=== PATIENT | female | born 1970 | race Caucasian/White ===

== ENCOUNTER → 2016-07-24 | Outpatient (CLI) | payer OTHER, BC ==
--- NOTE | 2016-07-25 08:57 | XR ---
Left foot HISTORY: Achilles tendinitis 3 views of the left foot No comparisons Bone mineralization, joint spaces and alignment are maintained. There is an enthesophyte at the inser tion of the Achilles tendon. Plantar spur is present. IMPRESSION: Correlate for Achilles tendinitis. MRI of the ankle may be of benefit.
== END | disposition home or self-care (01) ==
LOC: RADXRYALE 14:26
PROVIDERS: ATTEND Physician Assistant Medical
DX: M76.62 Achilles tendinitis, left leg (principal)

== ENCOUNTER → 2016-08-29 | Outpatient (CLI) | payer OTHER, BC ==
--- NOTE | 2016-08-29 22:09 | MR ---
EXAMINATION TYPE: MR ankle LT wo con DATE OF EXAM: 08/29/2016 7:29 PM COMPARISON: NONE HISTORY: Pain in left foot/ankle, swelling, limited movement x 1 month Standard multiplanar, multisequence MRI departmental protocol. [facility]. Multiplanar, multisequence images of the left ankle were acquired. Diffusion weighted imaging was per formed. FINDINGS: Peroneus longus and brevis tendons appear intact. Posterior tibial and flexor hallucis lo ngus tendons are intact. Very minimal fluid adjacent to these tendons is not excluded. Achilles tendon is intact. No expansion is evident. No internal signal abnormality is evident. There is soft tissue swelling within the superficial soft tissues surrounding the ankle; including po steriorly, laterally, and medially. This extends to the dorsum of the proximal foot. Significant underlying joint effusion is not present. Signal within the osseous structures is normal. There is some increased signal within the soft tissues inferior to the proximal foot tarsal region c ompatible with edema. This may be adjacent to the spring ligament which appears intact and of normal signal. Medial and lateral talotibial and talofibular ligaments appear intact. Intraosseous space within the twoar-tv-dvfe appears normal. Osseous signal is normal. No suspicious fluid or erosions are evident. IMPRESSION: 1. Diffuse nonspecific superficial soft tissue edema. 2. Some edema may also be within the soft tissues inferior to the tarsal bone region. 3. Minimal tendinosis of the posterior tibial and flexor hallucis longus tendons at the level of the malleolus is not excluded.
== END | disposition home or self-care (01) ==
LOC: RADMRIMAIN 18:37
PROVIDERS: ATTEND Orthopaedic Surgery Sports Medicine
DX: S96.992A Other specified injury of unspecified muscle and tendon at ankle and foot level, left foot, initial encounter (principal); M67.874 Other specified disorders of tendon, left ankle and foot

== ENCOUNTER → 2016-09-05 | Outpatient (CLI) | payer OTHER, BC ==
[2016-09-05 09:14] LABS: CH 29.7; CHCM 32.3; HCT 41.5 % (34.0-46.0); HDW 2.37; HGB 13.2 gm/dL (11.4-16.0); MCH 29.3 pg (25.0-35.0); MCHC 31.8 g/dL (31.0-37.0); RBC 4.51 m/uL (3.80-5.40); RDW 12.5 % (11.5-15.5); WBC 6.1 k/uL (3.8-10.6); WBC (Perox) 6.64
[2016-09-05 09:15] LABS: Basophils % (A) 0 %; Eosinophils # (A) 0.1 k/uL (0-0.7); Eosinophils % (A) 1 %; Luc # (Auto) 0.13; Luc % (Auto) 2; Lymphocytes % (A) 33 %; Monocytes # (A) 0.3 k/uL (0-1.0); Monocytes % (A) 5 %; Neutrophils # (A) 3.5 k/uL (1.3-7.7); Neutrophils % (A) 58 %
[2016-09-05 09:34] LABS: ALT 21 U/L (9-52); AST 17 U/L (14-36); Alkaline Phosphatase 91 U/L (38-126); Anion Gap 11 mmol/L; Blood Urea Nitrogen 14 mg/dL (7-17); Calcium 9.5 mg/dL (8.4-10.2); Carbon Dioxide 27 mmol/L (22-30); Chloride 104 mmol/L (98-107); Cholesterol 179 mg/dL (<200); Glucose 84 mg/dL (74-99); HDL Cholesterol 58 mg/dL (40-60); Non-African American GFR(MDRD) >60 (>60 ml/min/1.73 sqM); Potassium 4.6 mmol/L (3.5-5.1); Sodium 142 mmol/L (137-145); Total Bilirubin 0.5 mg/dL (0.2-1.3); Total Protein 6.8 g/dL (6.3-8.2); Triglycerides 79 mg/dL (<150)
== END | disposition home or self-care (01) ==
LOC: LABWHC1 08:38
PROVIDERS: ATTEND Family Medicine
DX: E55.9 Vitamin D deficiency, unspecified (principal); E03.9 Hypothyroidism, unspecified; D64.9 Anemia, unspecified
CPT/HCPCS: 36415; 80053; 80061; 82306; 84439; 84443; 84481; 85025

== ENCOUNTER → 2017-02-27 | Outpatient (CLI) | payer OTHER ==
--- NOTE | 2017-02-27 16:13 | XR ---
EXAMINATION TYPE: XR chest 2V DATE OF EXAM: 02/27/2017 COMPARISON: NONE TECHNIQUE: PA and lateral views submitted. HISTORY: Granuloma FINDINGS: The lungs are clear and there is no pneumothorax, pleural effusion, or focal pneumonia. Calcified g ranulomas are seen in the upper lobe. Biapical pleural thickening noted IMPRESSION: 1. No acute process. Changes of chronic granulomatous disease.
--- NOTE | 2017-02-27 16:57 | US ---
EXAMINATION TYPE: US thyroid st tissue head/neck DATE OF EXAM: 02/27/2017 COMPARISON: NONE CLINICAL HISTORY: E03.9 Hypothyroidism unspecified type. GLAND SIZE: Right Lobe: 4.1 x 0.8 x 0.9 cm Overall Parenchyma: homogenous Left Lobe: 4.4 x 1.2 x 1.1 cm Overall Parenchyma: slightly heterogeneous Isthmus Thickness: 0.1 cm NODULES RIGHT: # of nodules measured on right: 0 LEFT: # of nodules measured on left: 0 ISTHMUS: # of nodules measured in the isthmus: 0 Bilateral neck scanned, no evidence of lymphadenopathy. IMPRESSION: Negative thyroid sonogram. No discrete mass.
== END ==
LOC: RADUSWWP 15:55
PROVIDERS: ATTEND Family Medicine
DX: E03.9 Hypothyroidism, unspecified (principal); J84.10 Pulmonary fibrosis, unspecified
CPT/HCPCS: 71020; 76536

== ENCOUNTER → 2017-11-29 | Outpatient (CLI) | payer OTHER ==
--- NOTE | 2017-11-29 14:54 | XR ---
Third digit left hand HISTORY: Trauma and pain 2 views of the third digit of the left hand Bone mineralization, joint spaces and alignment are maintained IMPRESSION: No fracture or dislocation is evident, follow-up as indicated.
== END | disposition home or self-care (01) ==
LOC: RADXRYALE 11:34
PROVIDERS: ATTEND Physician Assistant Medical
DX: S67.193A Crushing injury of left middle finger, initial encounter (principal)

== ENCOUNTER → 2018-03-21 | Outpatient (CLI) | payer OTHER ==
[2018-03-21 08:36] LABS: T4, Free (Free Thyroxine) 1.13 ng/dL (0.78-2.19)
[2018-03-21 17:13] LABS: Thyroid Peroxidase Antibodies 31.8 U/mL (0.0-60.0)
== END | disposition home or self-care (01) ==
LOC: LABWHC1 07:29
PROVIDERS: ATTEND Family Medicine
DX: E03.9 Hypothyroidism, unspecified (principal); R53.83 Other fatigue
CPT/HCPCS: 36415; 84439; 84443; 86376; 86800

== ENCOUNTER → 2018-03-25 | Outpatient (CLI) | payer OTHER ==
--- NOTE | 2018-03-25 18:12 | US ---
EXAMINATION TYPE: US venous doppler duplex LE LT DATE OF EXAM: 03/25/2018 5:49 PM COMPARISON: NONE CLINICAL HISTORY: M25.572 Pain in left ankle and joints of left foot. Left achilles tendon surgery 6 weeks ago, pain and swelling left leg SIDE PERFORMED: Left TECHNIQUE: The lower extremity deep venous system is examined utilizing real time linear array sonog randolph with graded compression, doppler sonography and color-flow sonography. VESSELS IMAGED: External Iliac Vein (EIV) Common Femoral Vein Deep Femoral Vein Greater Saphenous Vein * Femoral Vein Popliteal Vein Small Saphenous Vein * Proximal Calf Veins (* superficial vessels) Left Leg: Negative for DVT. At the area of the patient's scar, there is a hypoechoic area visualized measuring 2.3 x 0.5 x 1.5 cm IMPRESSION: No evidence of deep venous thrombosis. There is an elongated hypoechoic area at the area of incision that measures 23 x 5 mm and could be hematoma or seroma.
== END | disposition home or self-care (01) ==
LOC: RADUSMAIN 17:30
PROVIDERS: ATTEND Orthopaedic Surgery
DX: M25.572 Pain in left ankle and joints of left foot (principal); R60.9 Edema, unspecified; I80.9 Phlebitis and thrombophlebitis of unspecified site

== ENCOUNTER → 2018-03-27 | Outpatient (CLI) | payer OTHER ==
--- NOTE | 2018-03-27 23:42 | US ---
EXAMINATION TYPE: US thyroid st tissue head/neck DATE OF EXAM: 03/27/2018 COMPARISON: 02/27/2017 CLINICAL HISTORY: 47-year-old female E03.9 HYPOTHYROIDISM, [id number] FATIGUE. TECHNIQUE: Multiple sonographic images of the thyroid gland are obtained. FINDINGS: GLAND SIZE: Right Lobe: 4.7 x 1.3 x 1.0 cm Overall Parenchyma: homogenous Left Lobe: 4.9 x 1.2 x 1.2 cm Overall Parenchyma: homogeneous Isthmus Thickness: 0.2 cm NODULES RIGHT: # of nodules measured on right: 1 1. 0.9 X 0.6 x 0.7 cm hypoechoic solid nodule at the mid pole with well-defined margins; . This no dule is wider than tall and shows no intranodular vascularity. Prior size: no prior LEFT: # of nodules measured on left: 0 ISTHMUS: # of nodules measured in the isthmus: 0 Bilateral neck scanned, no evidence of lymphadenopathy. IMPRESSION: A vague 9 mm solid nodule in the right lobe not seen on 02/27/2017. Close follow-up recommended. Biops y if progressive growth bringing it to over 1 cm.
== END | disposition home or self-care (01) ==
LOC: RADUSWWP 15:51
PROVIDERS: ATTEND Family Medicine
DX: E03.9 Hypothyroidism, unspecified (principal); R53.83 Other fatigue
CPT/HCPCS: 76536

== ENCOUNTER → 2019-01-29 | Outpatient (CLI) | payer OTHER ==
--- NOTE | 2019-01-30 15:20 | MM ---
Reason for exam: screening (asymptomatic). Last mammogram was performed 3 years and 4 months ago. History: Patient is postmenopausal. Family history of breast cancer in mother at age 60 and breast cancer in maternal aunt. Benign excisional biopsy of the right breast, December 08, 1997. Physical Findings: A clinical breast exam by your physician is recommended on an annual basis and results should be correlated with mammographic findings. MG 3D Screening Mammo W/Cad Bilateral CC and MLO view(s) were taken. Prior study comparison: September 23, 2015, bilateral MG 3d screening mammo w/cad. August 14, 2014, bilateral MG screening mammo w CAD. The breast tissue is heterogeneously dense. This may lower the sensitivity of mammography. Benign appearing bilateral calcifications. No significant changes when compared with prior studies. ASSESSMENT: Benign, BI-RAD 2 RECOMMENDATION: Routine screening mammogram of both breasts in 1 year.
== END | disposition home or self-care (01) ==
LOC: RADMAMWWP 07:21
PROVIDERS: ATTEND Family Medicine
DX: Z12.31 Encounter for screening mammogram for malignant neoplasm of breast (principal)
CPT/HCPCS: 77063; 77067

== ENCOUNTER → 2019-07-25 | Outpatient (CLI) | payer OTHER ==
--- NOTE | 2019-07-26 03:56 | MR ---
EXAMINATION TYPE: MR brain wo/w con DATE OF EXAM: 07/25/2019 COMPARISON: 01/24/2016 HISTORY: dizziness, headache CONTRAST: Standard multiplanar, multisequence MRI departmental protocol utilizing 7.5 mL intravenous Gadavist g adolinium contrast. Ventricles and sulci appear normal. There is no mass effect nor midline shift. There is no sign of in tracranial hemorrhage. There is no evidence of cerebral edema. Brainstem is intact. Corpus callosum a ppears normal. Sella turcica appears normal. There is mild mucosal thickening right maxillary sinus. Contrast images show no pathologic enhancement. There is normal opacification of the venous sinuses. There is arterial flow in the anterior middle and posterior cerebral arteries. There are a few small variable sized rounded areas of fluid signal in the medial aspect right frontal lobe convexity involving the fritz-white matter junction. Fluid signal and does not show enhancement. IMPRESSION: Nonenhancing fluid signal discrete foci in the medial right frontal lobe could relate to dilated kvng vascular spaces unchanged compared to old exam. Clinical significance is not clear. There is no evide nce of any significant frontal lobe atrophy. There is some right maxillary sinusitis that appears worse than old exam.
== END | disposition home or self-care (01) ==
LOC: RADMRIMAIN 20:21
PROVIDERS: ATTEND Family Medicine
DX: R90.89 Other abnormal findings on diagnostic imaging of central nervous system (principal); R55 Syncope and collapse; G43.009 Migraine without aura, not intractable, without status migrainosus; F43.12 Post-traumatic stress disorder, chronic; G89.29 Other chronic pain
CPT/HCPCS: 70553; A9585

== ENCOUNTER → 2020-04-06 | Outpatient (CLI) | payer OTHER | END | disposition home or self-care (01) | LOC: LABWHC1 09:59 | PROVIDERS: ATTEND Family Medicine | DX: R05 Cough (principal) | CPT/HCPCS: U0003; C9803 ==

== ENCOUNTER 2020-04-10 16:35 | Emergency (ER) | payer OTHER ==
--- NOTE | 2020-04-10 17:15 | ED ---
General Adult HPI - General Chief complaint: Shortness of Breath Stated complaint: KRISHAN SOUZA SOB DAWNA Time Seen by Provider: 04/10/20 16:56 Source: patient Mode of arrival: wheelchair Limitations: no limitations - History of Present Illness Initial comments: Patient presents the ED stating that she tested positive for Covid 4 days ago, and she states that she has had chest tightness and dyspnea since this morning. Patient states that she has had symptoms of cough, congestion, decreased sense of smell/taste and headache for the past 7 days or so. Patient states that she does feel anxious, and she has been "hyperventilating". Patient denies fever, head injury, focal numbness/weakness/neuro deficit, neck pain or stiffness, neck/arm/jaw/back pain, pleuritic pain, leg or calf swelling or pain, hemoptysis, palpitations, dizziness, diaphoresis, nausea/vomiting/diarrhea, abdominal pain, decreased urine output, urinary symptoms, or any other symptoms or complaints. - Related Data Allergies Allergy/AdvReac Type Severity Reaction Status Date / Time shellfish derived [Shrimp] Allergy Vomiting Verified 04/10/20 18:28 Review of Systems ROS Statement: Those systems with pertinent positive or pertinent negative responses have been documented in the HPI. ROS Other: All systems not noted in ROS Statement are negative. Past Medical History Past Medical History: No Reported History Past Surgical History: Appendectomy, Cholecystectomy Smoking Status: Never smoker Past Alcohol Use History: None Reported Past Drug Use History: None Reported General Exam Limitations: no limitations General appearance: alert, in no apparent distress Head exam: Present: atraumatic, normocephalic Eye exam: Present: normal appearance, EOMI ENT exam: Present: mucous membranes moist Neck exam: Present: other (Trachea is in midline). Absent: tenderness, meningismus Respiratory exam: Present: normal lung sounds bilaterally. Absent: respiratory distress, wheezes, rales, rhonchi, stridor, chest wall tenderness Cardiovascular Exam: Present: regular rate, normal rhythm, normal heart sounds, other (Normal radial pulses bilaterally) GI/Abdominal exam: Present: soft. Absent: distended, tenderness, guarding Extremities exam: Present: other (Negative Homans sign bilaterally). Absent: tenderness, pedal edema, calf tenderness Neurological exam: Present: alert, oriented X3. Absent: motor sensory deficit Psychiatric exam: Present: anxious Skin exam: Present: warm, dry, intact, normal color Course Vital Signs 04/10/20 04/10/20 16:37 17:46 Temperature 98.7 F Pulse Rate 81 Respiratory 22 20 Rate Blood Pressure 154/80 O2 Sat by Pulse 100 Oximetry - Reevaluation(s) Reevaluation #1: 04/10/20 19:42 Patient was given IV fluids in the ED, and she states that she is feeling somewhat better now. Patient denies development of any new symptoms while in the ED. Patient remains alert and breathing comfortably with clear breath sounds bilaterally and a normal room air oxygen saturation. Patient is aware of her test results, and she feels comfortable going home at this time. Patient was counseled about Covid and she was given quarantine instructions. Patient was clearly explained return and follow-up instructions. Patient feels comfortable with this plan. EKG Findings - EKG Comments: EKG Findings:: Sinus bradycardia, ventricular rate of 59 bpm, no ectopy, normal OH and QRS intervals, normal QT interval, normal axis, no ST or T-wave abnormality Medical Decision Making - Medical Decision Making Patient is breathing comfortably in the ED with a normal room air oxygen saturation. Patient's chest x-ray is unremarkable. Patient's labs are fairly unremarkable, other than a mildly elevated lactate level. Patient was given IV fluids in the ED. Will discharge patient home at this time with Covid instructions. - Lab Data Result diagrams: 04/10/20 17:35 04/10/20 17:35 Lab Results 04/10/20 04/10/20 04/10/20 Range/Units 17:35 17:35 17:35 WBC 4.0 (3.8-10.6) k/uL RBC 4.30 (3.80-5.40) m/uL Hgb 13.1 (11.4-16.0) gm/dL Hct 39.0 (34.0-46.0) % MCV 90.8 (80.0-100.0) fL MCH 30.6 (25.0-35.0) pg MCHC 33.6 (31.0-37.0) g/dL RDW 12.1 (11.5-15.5) % Plt Count 212 (150-450) k/uL Neutrophils % 43 % Lymphocytes % 43 % Monocytes % 8 % Eosinophils % 1 % Basophils % 2 % Neutrophils # 1.7 (1.3-7.7) k/uL Lymphocytes # 1.7 (1.0-4.8) k/uL Monocytes # 0.3 (0-1.0) k/uL Eosinophils # 0.1 (0-0.7) k/uL Basophils # 0.1 (0-0.2) k/uL PT 9.9 (9.0-12.0) sec INR 1.0 (<1.2) APTT 25.5 (22.0-30.0) sec D-Dimer 0.18 (<0.60) mg/L FEU Sodium 141 (137-145) mmol/L Potassium 3.6 (3.5-5.1) mmol/L Chloride 110 H (98-107) mmol/L Carbon Dioxide 23 (22-30) mmol/L Anion Gap 8 mmol/L BUN 13 (7-17) mg/dL Creatinine 0.66 (0.52-1.04) mg/dL Est GFR (CKD-EPI)AfAm >90 (>60 ml/min/1.73 sqM) Est GFR (CKD-EPI)NonAf >90 (>60 ml/min/1.73 sqM) Glucose 129 H (74-99) mg/dL Plasma Lactic Acid Jasper (0.7-2.0) mmol/L Calcium 9.4 (8.4-10.2) mg/dL Total Bilirubin 0.3 (0.2-1.3) mg/dL AST 29 (14-36) U/L ALT 29 (4-34) U/L Alkaline Phosphatase 73 (38-126) U/L Troponin I (0.000-0.034) ng/mL NT-Pro-B Natriuret Pep pg/mL Total Protein 6.2 L (6.3-8.2) g/dL Albumin 3.7 (3.5-5.0) g/dL 04/10/20 04/10/20 04/10/20 Range/Units 17:35 17:35 17:35 WBC (3.8-10.6) k/uL RBC (3.80-5.40) m/uL Hgb (11.4-16.0) gm/dL Hct (34.0-46.0) % MCV (80.0-100.0) fL MCH (25.0-35.0) pg MCHC (31.0-37.0) g/dL RDW (11.5-15.5) % Plt Count (150-450) k/uL Neutrophils % % Lymphocytes % % Monocytes % % Eosinophils % % Basophils % % Neutrophils # (1.3-7.7) k/uL Lymphocytes # (1.0-4.8) k/uL Monocytes # (0-1.0) k/uL Eosinophils # (0-0.7) k/uL Basophils # (0-0.2) k/uL PT (9.0-12.0) sec INR (<1.2) APTT (22.0-30.0) sec D-Dimer (<0.60) mg/L FEU Sodium (137-145) mmol/L Potassium (3.5-5.1) mmol/L Chloride (98-107) mmol/L Carbon Dioxide (22-30) mmol/L Anion Gap mmol/L BUN (7-17) mg/dL Creatinine (0.52-1.04) mg/dL Est GFR (CKD-EPI)AfAm (>60 ml/min/1.73 sqM) Est GFR (CKD-EPI)NonAf (>60 ml/min/1.73 sqM) Glucose (74-99) mg/dL Plasma Lactic Acid Jasper 2.2 H* (0.7-2.0) mmol/L Calcium (8.4-10.2) mg/dL Total Bilirubin (0.2-1.3) mg/dL AST (14-36) U/L ALT (4-34) U/L Alkaline Phosphatase (38-126) U/L Troponin I <0.012 (0.000-0.034) ng/mL NT-Pro-B Natriuret Pep 41 pg/mL Total Protein (6.3-8.2) g/dL Albumin (3.5-5.0) g/dL - Radiology Data Radiology results: image reviewed (Chest x-ray is negative) Disposition Clinical Impression: COVID-19 Disposition: HOME SELF-CARE Condition: Stable Instructions (If sedation given, give patient instructions): Upper Respiratory Infection (ED) Additional Instructions: Return to the ER immediately should you develop new or worsening pain, increased shortness of breath/trouble breathing, vomiting, feeling dizzy or faint, or new or worsening symptoms. Follow up closely with your primary care provider. Is patient prescribed a controlled substance at d/c from ED?: No Referrals: Ant Ly DO [Primary Care Provider] - 1-2 days Time of Disposition: 19:45
--- NOTE | 2020-04-10 17:43 | XR ---
EXAMINATION TYPE: XR chest 1V portable DATE OF EXAM: 04/10/2020 COMPARISON: 02/27/2017 HISTORY: Short of breath TECHNIQUE: FINDINGS: Heart and mediastinum are normal. Lungs are clear. Diaphragm is normal. Bony thorax is inta ct. IMPRESSION: No active cardiopulmonary disease. No change.
[2020-04-10 17:47] LABS: Basophils # (A) 0.1 k/uL (0-0.2); Basophils % (A) 2 %; Eosinophils # (A) 0.1 k/uL (0-0.7); Eosinophils % (A) 1 %; HGB 13.1 gm/dL (11.4-16.0); Lymphocytes # (A) 1.7 k/uL (1.0-4.8); Lymphocytes % (A) 43 %; MCH 30.6 pg (25.0-35.0); MCHC 33.6 g/dL (31.0-37.0); MCV 90.8 fL (80.0-100.0); Mean Platelet Volume 7.4; Monocytes # (A) 0.3 k/uL (0-1.0); Monocytes % (A) 8 %; Neutrophils # (A) 1.7 k/uL (1.3-7.7); Neutrophils % (A) 43 %; Platelet Count 212 k/uL (150-450); RDW 12.1 % (11.5-15.5)
[2020-04-10 18:09] LABS: ALT 29 U/L (4-34); AST 29 U/L (14-36); African American GFR (CKD) >90 (>60 ml/min/1.73 sqM); Albumin 3.7 g/dL (3.5-5.0); Alkaline Phosphatase 73 U/L (38-126); Anion Gap 8 mmol/L; Blood Urea Nitrogen 13 mg/dL (7-17); Calcium 9.4 mg/dL (8.4-10.2); Carbon Dioxide 23 mmol/L (22-30); Chloride 110 mmol/L (98-107); Glucose 129 mg/dL (74-99); Non-African American GFR(CKD) >90 (>60 ml/min/1.73 sqM); Potassium 3.6 mmol/L (3.5-5.1); Sodium 141 mmol/L (137-145); Total Bilirubin 0.3 mg/dL (0.2-1.3); Total Protein 6.2 g/dL (6.3-8.2)
[2020-04-10 18:14] LABS: D-Dimer 0.18 mg/L FEU (<0.60); Partial Thromboplastin Time 25.5 sec (22.0-30.0); Prothrombin Time 9.9 sec (9.0-12.0)
[2020-04-10] MEDS ORDERED: SODIUM CHLORIDE 0.9% 1,000 ML IV ONE (18:15)
[2020-04-10 20:30] VITALS: BP 147/83; PULSE 53; RESP 18; TEMP 97.8
== END 2020-04-10 20:35 | disposition home or self-care (01) ==
LOC: EC 16:35
DX: U07.1 COVID-19 (principal); Z91.013 Allergy to seafood; Z90.49 Acquired absence of other specified parts of digestive tract
CPT/HCPCS: 36415; 71045; 80053; 83605; 83880; 84484; 85025; 85379; 85610; 85730; 93005; 96360; 99285

== ENCOUNTER → 2020-04-26 | Outpatient (CLI) | payer OTHER ==
[2020-04-26 09:55] LABS: Basophils # (A) 0.1 k/uL (0-0.2); Basophils % (A) 1 %; Eosinophils # (A) 0.1 k/uL (0-0.7); Eosinophils % (A) 2 %; HGB 12.7 gm/dL (11.4-16.0); Lymphocytes % (A) 28 %; MCHC 31.8 g/dL (31.0-37.0); MCV 94.4 fL (80.0-100.0); Mean Platelet Volume 7.2; Monocytes # (A) 0.4 k/uL (0-1.0); Monocytes % (A) 6 %; Neutrophils # (A) 4.5 k/uL (1.3-7.7); Neutrophils % (A) 62 %; Platelet Count 278 k/uL (150-450); RBC 4.24 m/uL (3.80-5.40); RDW 12.5 % (11.5-15.5); WBC 7.2 k/uL (3.8-10.6)
[2020-04-26 17:54] LABS: African American GFR (CKD) 99.6 (60.0-200.0); Albumin 4.1 g/dL (3.80-4.90); Albumin/Globulin Ratio 1.86 (1.60-3.17); Anion Gap 7.7 mmol/L (4.00-12.00); BUN/Creat Ratio 13.75 Ratio (12.00-20.00); Calcium 9.2 mg/dL (8.7-10.3); Carbon Dioxide 27.3 mmol/L (21.6-31.8); Globulin 2.2 g/dL (1.6-3.3); Potassium 4.5 mmol/L (3.5-5.5); Total Bilirubin 0.3 mg/dL (0.2-1.2); Total Protein 6.3 g/dL (6.2-8.2)
[2020-04-26 18:02] LABS: T4, Free (Free Thyroxine) 1.3 ng/dL (0.80-1.80)
[2020-04-27 12:23] LABS: Chol/HDL Ratio 3.86; LDL Cholesterol,Calculated 126.4 mg/dL (0.0-131.0); VLDL Calculation 13.6 mg/dL (5.00-40.00)
== END | disposition home or self-care (01) ==
LOC: LABWHC1 09:34
PROVIDERS: ATTEND Family Medicine
DX: E03.9 Hypothyroidism, unspecified (principal); E55.9 Vitamin D deficiency, unspecified; E66.9 Obesity, unspecified; M79.7 Fibromyalgia
CPT/HCPCS: 36415; 80053; 80061; 82306; 84439; 84443; 85025

== ENCOUNTER → 2020-07-28 | Outpatient (CLI) | payer OTHER ==
--- NOTE | 2020-07-28 15:34 | US ---
EXAMINATION TYPE: US thyroid st tissue head/neck DATE OF EXAM: 07/28/2020 COMPARISON: US CLINICAL HISTORY: E03.9 Hypothyroidism, R13.13 Dysphagia. GLAND SIZE: Right Lobe: 4.3 x 1.1 x 1.4 cm Overall Parenchyma: homogenous Left Lobe: 3.3 x 1.4 x 1.3 cm Overall Parenchyma: homogeneous Isthmus Thickness: 0.2 cm NODULES RIGHT: # of nodules measured on right: 1 1. 1.2 X 0.7 x 0.5 cm solid, hypoechoic nodule in mid pole, which is wider than tall, with ill-defi criss margins, without echogenic foci. Prior size: 0.9 x 0.7 x 0.6 cm LEFT: # of nodules measured on left: 0 ISTHMUS: # of nodules measured in the isthmus: 0 Bilateral neck scanned: superolateral to right thyroid are 2 lymph nodes with larger inferior node = 0.9 x 0.5 x 0.4cm . IMPRESSION: TR 4, moderately suspicious, follow-up recommended 2017 ACR TI-RADS LEVEL: 4 *Highest TI-RADS level nodule reported
== END | disposition home or self-care (01) ==
LOC: RADUSWWP 07:35
PROVIDERS: ATTEND Family Medicine
DX: E04.1 Nontoxic single thyroid nodule (principal); E03.9 Hypothyroidism, unspecified
CPT/HCPCS: 76536

== ENCOUNTER 2020-09-06 12:30 | Day surgery (SDC) | payer OTHER ==
[2020-09-06 13:33] VITALS: RESP 16; TEMP 98
[2020-09-06 14:47] VITALS: BP 118/68; PULSE 64
--- NOTE | 2020-09-06 14:48 | US ---
ULTRASOUND GUIDED FNA THYROID BIOPSY: CLINICAL HISTORY: 1.5 cm right thyroid nodule FINDINGS: Preliminary imaging demonstrated no evidence of a 1.5 cm thyroid nodule. Largest nodule on the right measured approximately 7 mm. Case was discussed with the patient who wished to defer the biopsy. IMPRESSION: 1. Deferred FNA right thyroid. 1.5 cm previous nodule now measures approximately 0.7 cm in greatest a xis and is noticeably reduced in size. Recommend 6 month follow-up ultrasound.
== END 2020-09-06 14:47 | disposition home or self-care (01) ==
LOC: RADPROMAIN 12:30
PROVIDERS: ATTEND Physician Assistant Medical
DX: E04.1 Nontoxic single thyroid nodule (principal); Z53.9 Procedure and treatment not carried out, unspecified reason
CPT/HCPCS: 76536

== ENCOUNTER → 2020-10-05 | Outpatient (CLI) | payer OTHER ==
--- NOTE | 2020-10-05 12:22 | XR ---
EXAMINATION TYPE: XR shoulder complete RT DATE OF EXAM: 10/05/2020 COMPARISON: NONE HISTORY: Pain TECHNIQUE: Three views are submitted. FINDINGS: The osseous structures are intact. There is no acute fracture or dislocation. Mild arthropathy of th e AC joint. Calcifications in the right lung suggests granulomatous disease. IMPRESSION: 1. AC joint arthropathy 2. Intrathoracic granulomatous changes
== END | disposition home or self-care (01) ==
LOC: RADXRYALE 12:05
PROVIDERS: ATTEND Family Medicine
DX: M19.011 Primary osteoarthritis, right shoulder (principal)

== ENCOUNTER → 2020-10-19 | Outpatient (CLI) | payer OTHER ==
--- NOTE | 2020-10-20 09:25 | XR ---
Right hip HISTORY: Right hip pain for 3 months 2 views of the right hip Bone mineralization, joint spaces, alignment are maintained. There is minimal marginal spurring prese nt. No fracture or dislocation. IMPRESSION: Mild osteoarthritic changes suspected.
== END | disposition home or self-care (01) ==
LOC: RADXRYALE 16:20
PROVIDERS: ATTEND Family Medicine
DX: M25.551 Pain in right hip (principal)
CPT/HCPCS: 73502

== ENCOUNTER 2020-12-21 15:56 | Observation (INO) | payer OTHER ==
[2020-12-21] MEDS ORDERED: SODIUM CHLORIDE 0.9% 1,000 ML IV STA (16:35)
--- NOTE | 2020-12-21 16:48 | ED ---
Chest Pain HPI - General Chief Complaint: Chest Pain Stated Complaint: Chest pain,Arm numbness Source: patient, EMS, RN notes reviewed, old records reviewed Mode of arrival: EMS Limitations: no limitations - History of Present Illness Initial Comments: 50-year-old white female, alert and oriented 4, presents to the emergency room with complaints of left sided chest pain since Sunday with intermittent dizziness and radiation to the left arm. Patient states on Sunday it lasted about 2 hours but didn't resolve after she burped. However since Sunday pain has been a dull constant ache in her chest. She has intermittent episodes of dizziness which she states she just had but has resolved lasting less than a minute. Patient has a history of GERD, hypothyroidism, hypertension, bilateral lower extremity lymphedema since 1979 she bleeds from cellulitis from the [place] War. Patient states that the pain is 5 out of 10 has not tried any medication today. Patient denies any fevers, vomiting or recent sick contacts. Patient states her grandmother had a heart attack in her 50s and her brother had a heart attack and in his 50s. MD Complaint: chest pain -: days(s) (4) Pain Location: left chest Pain Radiation: LUE Severity: moderate Severity scale (1-10): 5 Quality: dull Consistency: intermittent Improves With: nothing Worsens With: nothing Anginal Symptoms: nausea Treatments Prior to Arrival: none - Related Data Home Medications Medication Instructions Recorded Confirmed Escitalopram [Lexapro] 10 mg PO DAILY 09/01/20 09/06/20 Levothyroxine Sodium [Synthroid] 75 mcg PO DAILY 09/01/20 09/06/20 Multivit with Calcium,Iron,Min 1 each PO DAILY 09/01/20 09/06/20 [Women's Multivitamin] Omeprazole 20 mg PO DAILY 09/01/20 09/06/20 amLODIPine [Norvasc] 5 mg PO DAILY 09/01/20 09/06/20 Allergies Allergy/AdvReac Type Severity Reaction Status Date / Time shellfish derived [Shrimp] Allergy Vomiting Verified 12/21/20 16:07 Review of Systems ROS Statement: Those systems with pertinent positive or pertinent negative responses have been documented in the HPI. ROS Other: All systems not noted in ROS Statement are negative. EKG Findings - EKG Results: EKG: sinus rhythm (Sinus bradycardia at 57, ME interval 0.156, QRS of 0.94, QTC of 0.432), not changed from: (04/10/2020) EKG shows: bradycardia Past Medical History Past Medical History: GERD/Reflux, Hypertension, Thyroid Disorder Additional Past Medical History / Comment(s): hypothyroid History of Any Multi-Drug Resistant Organisms: None Reported Past Surgical History: Appendectomy, Cholecystectomy Additional Past Surgical History / Comment(s): left achilles tendon repair Past Anesthesia/Blood Transfusion Reactions: No Reported Reaction Past Psychological History: No Psychological Hx Reported Smoking Status: Never smoker Past Alcohol Use History: None Reported Past Drug Use History: None Reported - Past Family History Mother Family Medical History: Cancer, Osteoarthritis (OA), Rheumatoid Arthritis (RA) Additional Family Medical History / Comment(s): breast General Exam Limitations: no limitations General appearance: alert, in no apparent distress Head exam: Present: atraumatic, normocephalic, normal inspection Eye exam: Present: normal appearance, PERRL, EOMI. Absent: scleral icterus, conjunctival injection, periorbital swelling Pupils: Present: normal accommodation ENT exam: Present: normal exam, normal oropharynx, mucous membranes moist Neck exam: Present: normal inspection. Absent: tenderness, meningismus, lym phadenopathy Respiratory exam: Present: normal lung sounds bilaterally. Absent: respiratory distress, wheezes, rales, rhonchi, stridor, chest wall tenderness, accessory muscle use, decreased breath sounds Cardiovascular Exam: Present: regular rate, normal rhythm, normal heart sounds. Absent: systolic murmur, diastolic murmur, rubs, gallop, clicks GI/Abdominal exam: Present: soft, normal bowel sounds. Absent: distended, tenderness, guarding, rebound, rigid Rectal exam: Present: deferred Extremities exam: Present: normal inspection, full ROM, normal capillary refill, pedal edema. Absent: tenderness, joint swelling, calf tenderness Back exam: Present: normal inspection, full ROM. Absent: tenderness, CVA tenderness (R), CVA tenderness (L), muscle spasm, paraspinal tenderness, vertebral tenderness, rash noted Neurological exam: Present: alert, oriented X3, CN II-XII intact Psychiatric exam: Present: normal affect, normal mood, anxious Skin exam: Present: warm, dry, intact, normal color. 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 Troponin is negative at 0.012, EKG shows sinus bradycardia rate [address] elevation. Hemoglobin and hematocrit is stable at 13 and 38 respectively, white count 7. Chest x-ray shows no acute cardiopulmonary process. Patient states that she has having an episode of the chest pain right now that feels a little more sharp than it did before. So she will be admitted to Dr. Westfall with cardiology on consult. Case discussed with Dr. Tarango. Patient given aspirin and nitroglycerin in the emergency room. Disposition Clinical Impression: Chest pain Disposition: ADMITTED IP TO THIS HOSP Instructions (If sedation given, give patient instructions): Chest Pain (ED) Referrals: Ant Ly DO [Primary Care Provider] - 1-2 days Decision Date: 12/21/20 Decision Time: 18:18
[2020-12-21 17:07] LABS: Basophils # (A) 0.1 k/uL (0-0.2); Basophils % (A) 1 %; Eosinophils # (A) 0.2 k/uL (0-0.7); Eosinophils % (A) 3 %; HCT 38.8 % (34.0-46.0); HGB 13.3 gm/dL (11.4-16.0); Lymphocytes # (A) 2.3 k/uL (1.0-4.8); Lymphocytes % (A) 33 %; MCH 30.9 pg (25.0-35.0); MCHC 34.3 g/dL (31.0-37.0); MCV 90.1 fL (80.0-100.0); Mean Platelet Volume 7.6; Monocytes # (A) 0.5 k/uL (0-1.0); Monocytes % (A) 7 %; Neutrophils # (A) 3.9 k/uL (1.3-7.7); Neutrophils % (A) 55 %; Platelet Count 245 k/uL (150-450); RBC 4.31 m/uL (3.80-5.40); RDW 12.6 % (11.5-15.5); WBC 7.1 k/uL (3.8-10.6)
[2020-12-21 17:09] LABS: Appearance,Urine Clear (Clear); Bilirubin,Urine Negative (Negative); Blood,Urine Negative (Negative); Color,Urine Light Yellow; Glucose,Urine (UA) Negative (Negative); Ketones,Urine Negative (Negative); Leukocyte Esterase,Urine Small (Negative); Mucus,Urine Rare /hpf; Nitrite,Urine Negative (Negative); PH, Urine 6.5 (5.0-8.0); Protein,Urine Negative (Negative); RBC,Urine <1 /hpf (0-5); Specific Gravity,Urine 1.014 (1.001-1.035); Squamous Epithelial Cell,Urine 2 /hpf (0-4); Urobilinogen,Urine <2.0 mg/dL (<2.0); WBC,Urine 3 /hpf (0-5)
[2020-12-21 17:16] LABS: ALT 13 U/L (4-34); AST 23 U/L (14-36); African American GFR (CKD) >90 (>60 ml/min/1.73 sqM); Albumin 4.2 g/dL (3.5-5.0); Alkaline Phosphatase 74 U/L (38-126); Anion Gap 9 mmol/L; Blood Urea Nitrogen 13 mg/dL (7-17); Calcium 9.5 mg/dL (8.4-10.2); Carbon Dioxide 27 mmol/L (22-30); Chloride 105 mmol/L (98-107); Glucose 96 mg/dL (74-99); Non-African American GFR(CKD) 90 (>60 ml/min/1.73 sqM); Partial Thromboplastin Time 26.5 sec (22.0-30.0); Prothrombin Time 10.6 sec (9.0-12.0); Sodium 141 mmol/L (137-145); Total Bilirubin 0.2 mg/dL (0.2-1.3); Total Protein 6.6 g/dL (6.3-8.2)
[2020-12-21 17:20] LABS: Potassium 4.3 mmol/L (3.5-5.1)
--- NOTE | 2020-12-21 17:24 | XR ---
EXAMINATION TYPE: XR chest 2V DATE OF EXAM: 12/21/2020 COMPARISON: 04/10/2020 HISTORY: Chest pain TECHNIQUE: 2 views FINDINGS: There is no heart failure nor confluent pneumonic infiltrate. Costophrenic angles are clear . There are chest leads. IMPRESSION: No active cardiopulmonary disease. No change.
[2020-12-21] MEDS ORDERED: NITROGLYCERIN SL TABS 0.4 MG TAB SUBLINGUAL PRN (18:17)
[2020-12-21] MEDS ORDERED: ASPIRIN 81 MG PO STA (18:17)
[2020-12-21] MEDS ORDERED: MORPHINE SULFATE 4 MG/ML SYRINGE IV PRN (18:32)
[2020-12-21] MEDS ORDERED: NALOXONE 0.4 MG/ML 1 ML VIAL IV PRN (18:32)
[2020-12-21] MEDS ORDERED: IBUPROFEN 400 MG TAB PO PRN (18:32)
[2020-12-21] MEDS ORDERED: ACETAMINOPHEN TAB 325 MG TAB PO PRN (18:32)
[2020-12-21] MEDS ORDERED: ONDANSETRON 4 MG/2 ML VIAL IVP PRN (18:32)
[2020-12-21] MEDS: SODIUM CHLORIDE 0.9% 1,000 ML IV SCH (19:08)
[2020-12-21] MEDS ORDERED: HYDROcodone/APAP 5-325MG 1 EACH TAB PO PRN (22:41)
[2020-12-21] MEDS ORDERED: ALPRAZolam 0.25 MG TAB PO PRN (22:42)
[2020-12-21] MEDS ORDERED: TEMAZEPAM 15 MG CAP PO PRN (22:43)
[2020-12-21] MEDS: ESCITALOPRAM 10 MG TAB PO SCH (23:03)
[2020-12-22] MEDS ORDERED: LEVOTHYROXINE 75 MCG TAB PO SCH (06:30)
[2020-12-22 07:54] VITALS: RESP 16
[2020-12-22] MEDS: ESCITALOPRAM 10 MG TAB PO SCH (08:14)
[2020-12-22] MEDS: SODIUM CHLORIDE 0.9% 1,000 ML IV SCH (08:15)
[2020-12-22] MEDS ORDERED: PANTOPRAZOLE 40 MG TABLET PO PRN (09:00)
[2020-12-22] MEDS ORDERED: amLODIPine 5 MG TAB PO SCH (09:00)
--- NOTE | 2020-12-22 09:28 | P.CRDCN ---
History of Present Illness History of present illness: HISTORY OF PRESENTING ILLNESS This is a pleasant 50-year-old female with history of hypertension, anxiety, hypothyroidism, family history of brother with coronary artery disease who presents secondary to off and on chest pain or last 5 days. Patient states initially she was driving her grandson approximately an hour away and then started to have left-sided chest pain while sitting in the car. This lasted for approximately an hour and a half and by the time she presented drying machine back tender to the hospital and dropped her grandson off the pain had subsided. She has however noticed intermittent episodes of chest pain over the last 3-4 days. It returned yesterday and has persisted and therefore patient presented to emergency department. She admits to some associated feeling of shortness breath however not clearly associated with this. It is reproducible on exam and she admits that this is most of the pain. She denies any trauma or fall or injury. Denies any similar episodes in the past. She has not had a cardiac workup previously. She does have a history of brother with coronary artery disease in his 50s however believes her cholesterol has been well controlled. Denies any tobacco, alcohol or illicit drugs. She also admits to some left arm numbness over the last few days and is unsure if this is related to a pinched nerve however has not had this before. No focal weakness. White blood cell count 7.1, hemoglobin 13.3, platelets 245 sodium 141, creatinine 0.7, troponin less than 0.0121, EKG shows mild sinus bradycardia with a heart rate of 57, no significant ST or T-wave abnormalities. REVIEW OF SYSTEMS At the time of my exam: CONSTITUTIONAL: Denies fever or chills. CARDIOVASCULAR: +chest pain, +shortness of breath, no orthopnea, PND or palpitations. RESPIRATORY: Denies cough. GASTROINTESTINAL: Denies abdominal pain, diarrhea, constipation, nausea or vo miting. MUSCULOSKELETAL: Denies myalgias. NEUROLOGIC: Denies numbness, tingling or weakness. ENDOCRINE: Denies fatigue, weight change, polydipsia or polyurina. GENITOURINARY: Denies burning, hematuria or urgency with micturation. HEMATOLOGIC: Denies history of anemia or bleeding. PHYSICAL EXAMINATION Vital signs reviewed. CONSTITUTIONAL: No apparent distress. HEENT: Head is normocephalic. Pupils are equal, round. Sclerae anicteric. Mucous membranes of the mouth are moist. No JVD. No carotid bruit. CHEST EXAMINATION: Lungs are clear to auscultation. + reprodicible left anterior chest pain with palpation HEART EXAMINATION: Regular rate and rhythm. S1, S2 heard. No murmurs, gallops or rub. ABDOMEN: Soft, nontender. Positive bowel sounds. EXTREMITIES: 2+ peripheral pulses, no lower extremity edema and no calf tenderness. NEUROLOGIC EXAMINATION: Patient is awake, alert and oriented x3. ASSESSMENT 1. Atypical chest pain, reproducible on exam 2. Left arm numbness, questionable radiculopathy or possibly anxiety versus other 3. History of hypertension 4. Family history of coronary artery disease in brother PLAN Check 2-D echo. Chest pain appears fairly atypical and reproducible on exam however does have significant risk factors. We will check a stress echo. If stress echo unrevealing patient discharged from cardiology standpoint. Past Medical History Past Medical History: GERD/Reflux, Hypertension, Thyroid Disorder Additional Past Medical History / Comment(s): hypothyroid History of Any Multi-Drug Resistant Organisms: None Reported Past Surgical History: Appendectomy, Cholecystectomy Additional Past Surgical History / Comment(s): left achilles tendon repair Past Anesthesia/Blood Transfusion Reactions: No Reported Reaction Past Psychological History: No Psychological Hx Reported Smoking Status: Never smoker Past Alcohol Use History: None Reported Past Drug Use History: None Reported - Past Family History Mother Family Medical History: Cancer, Osteoarthritis (OA), Rheumatoid Arthritis (RA) Additional Family Medical History / Comment(s): breast Medications and Allergies Home Medications Medication Instructions Recorded Confirmed Type Escitalopram [Lexapro] 10 mg PO DAILY 09/01/20 12/21/20 History Levothyroxine Sodium [Synthroid] 75 mcg PO DAILY 09/01/20 12/21/20 History Omeprazole 20 mg PO DAILY PRN 09/01/20 12/21/20 History amLODIPine [Norvasc] 5 mg PO DAILY 09/01/20 12/21/20 History Allergies Allergy/AdvReac Type Severity Reaction Status Date / Time shellfish derived [Shrimp] Allergy Vomiting Verified 12/21/20 18:25 Physical Exam Vitals: Vital Signs Temp Pulse Pulse Pulse Resp BP BP 12/22/20 08:26 12/22/20 08:00 59 L 16 12/22/20 07:00 97.9 F 59 L 16 122/72 12/22/20 01:53 97.5 F L 64 18 144/75 12/21/20 22:00 97.9 F 56 L 16 149/76 12/21/20 21:06 52 L 18 162/80 12/21/20 19:09 56 L 18 162/80 12/21/20 17:41 53 L 18 148/82 12/21/20 17:19 54 L 12/21/20 16:42 97.7 F 54 L 18 149/85 12/21/20 16:07 97.6 F 61 16 160/88 Pulse Ox 12/22/20 08:26 99 12/22/20 08:00 12/22/20 07:00 99 12/22/20 01:53 100 12/21/20 22:00 12/21/20 21:06 98 12/21/20 19:09 98 12/21/20 17:41 100 12/21/20 17:19 12/21/20 16:42 99 12/21/20 16:07 99 Intake and Output 12/21/20 12/22/20 12/22/20 22:59 06:59 14:59 Other: Voiding Method Toilet Toilet # Voids 2 Weight 95.254 kg Results 12/21/20 16:50 12/21/20 16:50 Cardiac Enzymes 12/21/20 12/21/20 Range/Units 16:50 16:50 AST 23 (14-36) U/L Troponin I <0.012 (0.000-0.034) ng/mL Coagulation 12/21/20 Range/Units 16:50 PT 10.6 (9.0-12.0) sec APTT 26.5 (22.0-30.0) sec CBC 12/21/20 Range/Units 16:50 WBC 7.1 (3.8-10.6) k/uL RBC 4.31 (3.80-5.40) m/uL Hgb 13.3 (11.4-16.0) gm/dL Hct 38.8 (34.0-46.0) % Plt Count 245 (150-450) k/uL Comprehensive Metabolic Panel 12/21/20 Range/Units 16:50 Sodium 141 (137-145) mmol/L Potassium 4.3 (3.5-5.1) mmol/L Chloride 105 (98-107) mmol/L Carbon Dioxide 27 (22-30) mmol/L BUN 13 (7-17) mg/dL Creatinine 0.77 (0.52-1.04) mg/dL Glucose 96 (74-99) mg/dL Calcium 9.5 (8.4-10.2) mg/dL AST 23 (14-36) U/L ALT 13 (4-34) U/L Alkaline Phosphatase 74 (38-126) U/L Total Protein 6.6 (6.3-8.2) g/dL Albumin 4.2 (3.5-5.0) g/dL Current Medications Generic Name Dose Route Start Last Admin Trade Name Freq PRN Reason Stop Dose Admin Acetaminophen 650 mg 12/21/20 18:32 Acetaminophen Tab 325 Mg Tab PO Q6HR PRN Mild Pain or Fever > 100.5 Hydrocodone Bitart/Acetaminophen 1 each 12/21/20 22:41 Hydrocodone/Apap 5-325mg 1 Each Tab PO Q6HR PRN Pain Alprazolam 0.25 mg 12/21/20 22:42 Alprazolam 0.25 Mg Tab PO QID PRN Anxiety Amlodipine Besylate 5 mg 12/22/20 09:00 12/22/20 08:14 Amlodipine 5 Mg Tab PO 5 mg DAILY HILARY Administration Escitalopram Oxalate 10 mg 12/21/20 22:45 12/22/20 08:14 Escitalopram 10 Mg Tab PO Not Given DAILY HILARY Sodium Chloride 1,000 mls @ 75 mls/hr 12/21/20 18:45 12/22/20 08:15 Saline 0.9% IV 75 mls/hr .[id number] HILARY Administration Ibuprofen 400 mg 12/21/20 18:32 12/22/20 09:10 Ibuprofen 400 Mg Tab PO 400 mg Q6HR PRN Administration Mild Pain or Fever > 100.5 Levothyroxine Sodium 75 mcg 12/22/20 06:30 12/22/20 05:48 Levothyroxine 75 Mcg Tab PO 75 mcg DAILY@0630 HILARY Administration Morphine Sulfate 4 mg 12/21/20 18:32 Morphine Sulfate 4 Mg/Ml Syringe IV Q4HR PRN Severe Pain Naloxone HCl 0.2 mg 12/21/20 18:32 Naloxone 0.4 Mg/Ml 1 Ml Vial IV Q2M PRN Opioid Reversal Nitroglycerin 0.4 mg 12/21/20 18:17 Nitroglycerin Sl Tabs 0.4 Mg Tab SUBLINGUAL Q5M PRN Chest Pain Ondansetron HCl 4 mg 12/21/20 18:32 Ondansetron 4 Mg/2 Ml Vial IVP Q8HR PRN Nausea And Vomiting Pantoprazole Sodium 40 mg 12/22/20 09:00 Pantoprazole 40 Mg Tablet PO DAILY PRN GERDS Temazepam 15 mg 12/21/20 22:43 Temazepam 15 Mg Cap PO HS PRN Insomnia Intake and Output 12/21/20 12/22/20 12/22/20 22:59 06:59 14:59 Other: Voiding Method Toilet Toilet # Voids 2 Weight 95.254 kg 12/21/20 16:50 12/21/20 16:50
--- NOTE | 2020-12-22 13:31 | P.HPIM ---
History of Present Illness 50-year-old the female came in with complaints of chest pain which was reproducible without any lightheadedness dizziness, diaphoresis nonexertional. Patient pain was moderately severe sharp in nature resolved thereafter. Patient does have cervical degenerative disc disease. Patient had cervical fusion surgery as well in the past. Patient does have family history of premature coronary artery disease troponins were negative EKG did not show any acute ST-T wave changes. Review of Systems REVIEW OF SYSTEMS: CONSTITUTIONAL: No fever, no malaise, no fatigue. HEENT: No recent visual problems or hearing problems. Denied any sore throat. CARDIOVASCULAR: No orthopnea, PND, no palpitations, no syncope. PULMONARY: No shortness of breath, no cough, no hemoptysis. GASTROINTESTINAL: No diarrhea, no nausea, no vomiting, no abdominal pain. NEUROLOGICAL: No headaches, no weakness, no numbness. HEMATOLOGICAL: Denies any bleeding or petechiae. GENITOURINARY: Denies any burning micturition, frequency, or urgency. MUSCULOSKELETAL/RHEUMATOLOGICAL: Denies any joint pain, swelling, or any muscle pain. ENDOCRINE: Denies any polyuria or polydipsia. The rest of the 14-point review of systems is negative. Past Medical History Past Medical History: GERD/Reflux, Hypertension, Thyroid Disorder Additional Past Medical History / Comment(s): hypothyroid History of Any Multi-Drug Resistant Organisms: None Reported Past Surgical History: Appendectomy, Cholecystectomy Additional Past Surgical History / Comment(s): left achilles tendon repair Past Anesthesia/Blood Transfusion Reactions: No Reported Reaction Past Psychological History: No Psychological Hx Reported Smoking Status: Never smoker Past Alcohol Use History: None Reported Past Drug Use History: None Reported - Past Family History Mother Family Medical History: Cancer, Osteoarthritis (OA), Rheumatoid Arthritis (RA) Additional Family Medical History / Comment(s): breast Medications and Allergies Home Medications Medication Instructions Recorded Confirmed Type Escitalopram [Lexapro] 10 mg PO DAILY 09/01/20 12/21/20 History Levothyroxine Sodium [Synthroid] 75 mcg PO DAILY 09/01/20 12/21/20 History Omeprazole 20 mg PO DAILY PRN 09/01/20 12/21/20 History amLODIPine [Norvasc] 5 mg PO DAILY 09/01/20 12/21/20 History Allergies Allergy/AdvReac Type Severity Reaction Status Date / Time shellfish derived [Shrimp] Allergy Vomiting Verified 12/21/20 18:25 Physical Exam Vitals: Vital Signs Temp Pulse Pulse Pulse Resp BP BP 12/22/20 11:44 59 L 16 12/22/20 08:26 12/22/20 08:00 59 L 16 12/22/20 07:00 97.9 F 59 L 16 122/72 12/22/20 01:53 97.5 F L 64 18 144/75 12/21/20 22:00 97.9 F 56 L 16 149/76 12/21/20 21:06 52 L 18 162/80 12/21/20 19:09 56 L 18 162/80 12/21/20 17:41 53 L 18 148/82 12/21/20 17:19 54 L 12/21/20 16:42 97.7 F 54 L 18 149/85 12/21/20 16:07 97.6 F 61 16 160/88 Pulse Ox 12/22/20 11:44 12/22/20 08:26 99 12/22/20 08:00 12/22/20 07:00 99 12/22/20 01:53 100 12/21/20 22:00 12/21/20 21:06 98 12/21/20 19:09 98 12/21/20 17:41 100 12/21/20 17:19 12/21/20 16:42 99 12/21/20 16:07 99 Intake and Output 12/21/20 12/22/20 12/22/20 22:59 06:59 14:59 Other: Voiding Method Toilet Toilet # Voids 2 2 Weight 95.254 kg 95.25 kg PHYSICAL EXAMINATION: GENERAL: The patient is alert and oriented x3, not in any acute distress. Well developed, well nourished. HEENT: Pupils are round and equally reacting to light. EOMI. No scleral icterus. No conjunctival pallor. Normocephalic, atraumatic. No pharyngeal erythema. No thyromegaly. CARDIOVASCULAR: S1 and S2 present. No murmurs, rubs, or gallops. PULMONARY: Chest is clear to auscultation, no wheezing or crackles. ABDOMEN: Soft, nontender, nondistended, normoactive bowel sounds. No palpable organomegaly. MUSCULOSKELETAL: No joint swelling or deformity. EXTREMITIES: No cyanosis, clubbing, or pedal edema. NEUROLOGICAL: Gross neurological examination did not reveal any focal deficits. SKIN: No rashes. Results CBC & Chem 7: 12/21/20 16:50 12/21/20 16:50 Labs: Abnormal Lab Results - Last 24 Hours (Table) 12/21/20 Range/Units 16:53 Ur Leukocyte Esterase Small H (Negative) Urine Mucus Rare H (None) /hpf Thrombosis Risk Factor Assmnt - Choose All That Apply Each Factor Represents 1 point: Age 41-60 years, Obesity (BMI >25) Thrombosis Risk Factor Assessment Total Risk Factor Score: 2 Thrombosis Risk Factor Assessment Level: Low Risk Assessment and Plan Plan: -Chest pain: Atypical, ruled out acute coronary syndromes. He appeared to be musculoskeletal from cervical degenerative disc disease.Testing significant family history of premature coronary artery disease cardiology is recommending a stress test. Have to the stress test if that's negative patient will be discharged today. Patient does take Motrin at home which she'll continue discussed regarding physical therapy options for musculoskeletal neck and chest pain with radiculopathy and follow with PCP. -Gastroesophageal reflux disease -Hyperthyroidism -Hypertension blood pressure is well controlled on Norvasc Patient will be discharged after the stress test if it's negative
--- NOTE | 2020-12-22 13:31 | P.DS ---
Providers Date of admission: 12/21/20 18:53 Attending physician: Elsa Westfall Consults: 12/21/20 18:33 Consult Physician Urgent Consulting Provider: Osmin Shaver Consult Reason/Comments: Chest pain Do you want consulting provider notified?: Yes Primary care physician: Ant Ly [facility] Course: Refer to my history of present illness for further details Plan - Discharge Summary Discharge Rx Participant: No New Discharge Prescriptions: No Action Escitalopram [Lexapro] 10 mg PO DAILY amLODIPine [Norvasc] 5 mg PO DAILY Omeprazole 20 mg PO DAILY PRN PRN Reason: GERDS Levothyroxine Sodium [Synthroid] 75 mcg PO DAILY Discharge Medication List Escitalopram [Lexapro] 10 mg PO DAILY 09/01/20 [History] Levothyroxine Sodium [Synthroid] 75 mcg PO DAILY 09/01/20 [History] Omeprazole 20 mg PO DAILY PRN 09/01/20 [History] amLODIPine [Norvasc] 5 mg PO DAILY 09/01/20 [History] Follow up Appointment(s)/Referral(s): Ant Ly DO [Primary Care Provider] - 3 Days Patient Instructions/Handouts: Chest Pain (ED) Discharge Disposition: HOME SELF-CARE
--- NOTE | 2020-12-22 13:32 | ECHOF ---
Referral Reason:LV function MEASUREMENTS -------- HEIGHT: 172.7 cm WEIGHT: 95.3 kg BP: RVIDd: 2.5 cm (< 3.3) IVSd: 0.9 cm (0.6 - 1.1) LVIDd: 4.2 cm (3.9 - 5.3) LVPWd: 1.3 cm (0.6 - 1.1) IVSs: 1.3 cm LVIDs: 2.7 cm LVPWs: 1.6 cm LA Diam: 3.7 cm (2.7 - 3.8) Ao Diam: 2.4 cm (2.0 - 3.7) AV Cusp: 1.9 cm (1.5 - 2.6) LA Diam: 3.3 cm (2.7 - 3.8) MV EXCURSION: 16.659 mm (> 18.000) MV EF SLOPE: 84 mm/s (70 - 150) EPSS: 0.3 cm MV E Isael: 0.73 m/s MV DecT: 257 ms MV A Isael: 0.87 m/s MV E/A Ratio: 0.84 RAP: 5.00 mmHg RVSP: 13.72 mmHg FINDINGS -------- Sinus rhythm. This was a technically adequate study. LV size, wall thickness and systolic function are normal, with an EF greater than 55%. The left jimmy tricular size is normal. The right ventricle is normal in size. The left atrial size is normal. The right atrial size is normal. The aortic valve is trileaflet, and appears structurally normal. No aortic stenosis or regurgitation. Mild mitral regurgitation is present. Mild tricuspid regurgitation present. Right ventricular systolic pressure is normal at < 35 mmHg. The pulmonic valve was not well visualized. There is no pericardial effusion. CONCLUSIONS -------- 1. LV size, wall thickness and systolic function are normal, with an EF greater than 55%. 2. The left ventricular size is normal. 3. The right ventricle is normal in size. 4. The left atrial size is normal. 5. The right atrial size is normal. 6. The aortic valve is trileaflet, and appears structurally normal. No aortic stenosis or regurgitati on. 7. Mild mitral regurgitation is present. 8. Mild tricuspid regurgitation present. 9. The pulmonic valve was not well visualized. 10. There is no pericardial effusion. BUTTON SEWER: Vicky Mckoy RDCS
--- NOTE | 2020-12-22 13:39 | P.STRESS ---
- Stress Test Note Stress Test Results/Findings: Exam Performed: stress echo exercise with con Exam Date: 12/22/20 Reason for Exam: CHEST PAIN Height: 5 ft 8 in Weight: 95.25 kg Protocol: ALONSO Stage: 3 Duration of Exercise: 6:37 Resting Heart Rate: 68 Resting Blood Pressure: 144/81 Maximum Achieved Heart Rate: 157 Maximum Achieved Blood Pressure: 186/64 85% PMHR: 144 100% PMHR: 169 METS: 7.7 Technologist Comment: Stress Test Results/Findings: Patient underwent exercise stress echo with a Alonso protocol treadmill stress test. Patient exercised into Stage 3 for a total of 6 minutes and 37 seconds reaching a total of 7.7 METS. Patient's maximum heart rate was 157 which represented 93 % age-predicted maximum heart rate. Stress EKG portion: At baseline patient's EKG showed normal sinus rhythm, normal axis, T-wave inversion V2, no significant ST or T-wave abnormalities. At peak exercise, EKG showed no significant change from baseline. Stress echo portion: 2-D echocardiogram was performed in the parasternal long, personal short, apical 2 and apical four-chamber views at rest, peak exercise and in recovery. At baseline, echocardiogram showed left ventricular ejection fraction 55% without wall motion abnormalities. With peak exercise, echocardiogram shows improvement in left ventricular ejection fraction, increase contractility, decrease in left ventricular dimension without wall motion abnormalities consistent with a normal response to exercise. Conclusions: 1. Normal EKG and echo response to exercise without evidence of inducible ischemia. 2. Fair exercise capacity.
[2020-12-22 14:46] VITALS: BP 130/79; PULSE 62; TEMP 98.3
[2020-12-22 19:46] LABS: Chol/HDL Ratio 3.74; LDL Cholesterol,Calculated 112.8 mg/dL (0.0-131.0); VLDL Calculation 16.2 mg/dL (5.00-40.00)
== END 2020-12-22 14:48 | disposition home or self-care (01) ==
LOC: EC 15:56 → 6NMEDSUR 18:53
PROVIDERS: ADMIT Hospitalist; ATTEND Hospitalist
DX: R07.89 Other chest pain (principal); R20.0 Anesthesia of skin; R42 Dizziness and giddiness; K21.9 Gastro-esophageal reflux disease without esophagitis; E03.9 Hypothyroidism, unspecified; I10 Essential (primary) hypertension; I89.0 Lymphedema, not elsewhere classified; R11.0 Nausea; R00.1 Bradycardia, unspecified; F41.9 Anxiety disorder, unspecified; R06.02 Shortness of breath; E05.90 Thyrotoxicosis, unspecified without thyrotoxic crisis or storm; M50.30 Other cervical disc degeneration, unspecified cervical region; E66.9 Obesity, unspecified; Z68.31 Body mass index [BMI] 31.0-31.9, adult; Z20.822 Contact with and (suspected) exposure to COVID-19; Z79.899 Other long term (current) drug therapy; Z79.890 Hormone replacement therapy; Z91.013 Allergy to seafood; Z90.49 Acquired absence of other specified parts of digestive tract; Z82.49 Family history of ischemic heart disease and other diseases of the circulatory system; Z82.61 Family history of arthritis; Z80.9 Family history of malignant neoplasm, unspecified
CPT/HCPCS: 96360; 99285; 36415; 94760; 93005; 93306; 93351; 80061; 80053; 84443; 83735; 84484 ×2; 85025; 85610; 85730; 81001; 87635; 71046; G0378 ×2; Q9950

== ENCOUNTER → 2021-01-18 | Outpatient (CLI) | payer OTHER ==
--- NOTE | 2021-01-18 20:17 | XR ---
Lumbosacral spine HISTORY: M545,[id number],[id number] LBP,SACROILITIS,RT HIP PAIN 5 views of lumbosacral spine Bone mineralization is reduced. Lumbar vertebral bodies show preserved height, alignment, there is no evident spondylolysis. Multilevel spondylosis is present. Loss of disc height present at interverteb ral levels. Sclerosis present in the posterior elements. Surgical clips present in the right upper qu adrant. There is overlying artifact. IMPRESSION: Degenerative disc disease, facet arthropathy, osteopenia.
== END | disposition home or self-care (01) ==
LOC: RADXRYALE 16:33
PROVIDERS: ATTEND Family Medicine
DX: M51.37 Other intervertebral disc degeneration, lumbosacral region (principal); M47.897 Other spondylosis, lumbosacral region; M85.88 Other specified disorders of bone density and structure, other site; M46.1 Sacroiliitis, not elsewhere classified
CPT/HCPCS: 72110

== ENCOUNTER 2021-02-10 07:59 | Day surgery (SDC) | payer OTHER ==
[2021-02-09 08:50] VITALS: BMI 33.2
[~2021-02-10 07:59] MED LIST: LACTATED RINGERS 1,000 ML IV SCH
[2021-02-10 08:27] VITALS: TEMP 97.8
[2021-02-10] MEDS ORDERED: LACTATED RINGERS 1,000 ML IV ONE (08:27)
[2021-02-10] MEDS ORDERED: PROPOFOL 10 MG/ML 20 ML VIAL IV ONE (08:59)
--- NOTE | 2021-02-10 09:31 | P.PCN ---
Date of Procedure: 02/10/21 Description of Procedure: BRIEF HISTORY: Patient is a 50-year-old female presenting for outpatient colonoscopy for screening for malignant neoplasm of the colon. Patient denies any change in bowel habits, blood per rectum or family history of colon cancer. No prior colonoscopies reported. PROCEDURE PERFORMED: Colonoscopy with polypectomy. PREOPERATIVE DIAGNOSIS: Screening for malignant neoplasm of the colon, no prior colonoscopy reported. ESTIMATED BLOOD LOSS: Minimal. IV sedation per Anesthesia. PROCEDURE: After informed consent was obtained, the patient, was brought into the endoscopy unit. IV sedation was administered by Anesthesia under continuous monitoring. Digital rectal examination was normal. Initially the Olympus CF-190 flexible video colonoscope was then inserted in the rectum, gradually advanced into the cecum without any difficulty. Careful examination was performed as the scope was gradually being withdrawn. Ileocecal valve and the appendiceal orifice were visualized and appeared normal. Prep was excellent. Mucosa of the cecum, ascending colon, transverse colon, descending colon, sigmoid colon, and rectum appeared normal, except for a diminutive 2 mm sigmoid polyp removed with cold forcep polypectomy. Retroflexion was performed in the rectum and no lesions were seen, low-grade internal hemorrhoids. The patient tolerated the procedure well. IMPRESSION: Diminutive sigmoid polyp removed with cold forcep polypectomy. Otherwise, normal-appearing colon from rectum to cecum . RECOMMENDATIONS: Findings of this examination were discussed with the patient and her family. Okay to resume diet. Okay to resume medications. Await pathology from polypectomy. Recommend repeat colonoscopy in 7 years for colon polyp pending pathology from polypectomy.
[2021-02-10 09:45] VITALS: BP 127/67; PULSE 68; RESP 17
== END 2021-02-10 10:10 | disposition home or self-care (01) ==
LOC: ORWHC2ENDO 07:59
PROVIDERS: ATTEND Internal Medicine
DX: Z12.11 Encounter for screening for malignant neoplasm of colon (principal); D12.5 Benign neoplasm of sigmoid colon; I10 Essential (primary) hypertension; E07.9 Disorder of thyroid, unspecified; K21.9 Gastro-esophageal reflux disease without esophagitis; Z79.890 Hormone replacement therapy; F39 Unspecified mood [affective] disorder; Z91.013 Allergy to seafood
CPT/HCPCS: 45380; 88305; J2704; 44389

== ENCOUNTER → 2021-03-14 | Outpatient (CLI) | payer OTHER ==
--- NOTE | 2021-03-14 15:19 | XR ---
EXAMINATION TYPE: XR foot complete RT DATE OF EXAM: 03/14/2021 COMPARISON: NONE HISTORY: Pain TECHNIQUE: Three views are submitted. FINDINGS: The osseous structures are intact. There is no acute fracture or dislocation. Joint spaces are p reserved. Calcaneal spur noted. IMPRESSION: 1. No acute fracture or dislocation. If symptoms persist, follow-up exam in 7 to 10 days could be ob tained.
== END | disposition home or self-care (01) ==
LOC: RADXRYALE 15:05
PROVIDERS: ATTEND Physician Assistant Medical
DX: M79.671 Pain in right foot (principal)

== ENCOUNTER → 2021-03-28 | Outpatient (CLI) | payer OTHER ==
--- NOTE | 2021-03-29 08:50 | MR ---
EXAMINATION TYPE: MR lumbar spine wo con DATE OF EXAM: 03/28/2021 COMPARISON: Lumbar spine x-ray January 18, 2021 HISTORY: Low back pain down right leg for 8 months. TECHNIQUE: Multiplanar, multisequence imaging of the lumbar spine is performed without IV contrast. FINDINGS: Sagittal images of the lumbar spine show vertebral body heights and alignment to appear sat isfactory. Multilevel disc desiccation and mild disc space narrowing. The conus medullaris is normal in position and signal ending at L1 level. The bone marrow signal intensity is within normal limits . Axial images show T12-L1 and L1-L2 levels to appear within normal limits. Axial images at L2-L3 level show mild broad disc bulge with left paracentral disc protrusion componen t effacing the anterior thecal sac. Patent bilateral neural foramina. Axial images at L3-L4 level mild/moderate facet arthropathy bilaterally. Axial images at L4-L5 level shows moderate facet degenerative changes and ligamentum flavum hypertrop hy. Spinal canal is preserved. Patent bilateral neural foramina. Axial images at the L5-S1 level show moderate facet arthropathy bilaterally. Spinal canal is preserve d. The bilateral neuroforamina are patent. No suspicious incidental retroperitoneal finding. Suspect simple central parapelvic cyst left kidney axial image 27. IMPRESSION: Multilevel mild degenerative changes mid to lower lumbar spine as detailed above. Source of patient's right-sided radiculopathy type symptoms not identified.
== END | disposition home or self-care (01) ==
LOC: RADMRIMAIN 21:16
PROVIDERS: ATTEND Family Medicine
DX: M51.36 Other intervertebral disc degeneration, lumbar region (principal)
CPT/HCPCS: 72148

== ENCOUNTER → 2021-04-29 | Outpatient (CLI) | payer OTHER ==
--- NOTE | 2021-04-30 04:25 | MR ---
EXAMINATION TYPE: MR ankle RT wo con DATE OF EXAM: 04/29/2021 COMPARISON: None HISTORY: Right ankle pain, mid foot, lateral aspect. Multiplanar multiecho imaging of the right ankle without contrast. Ankle mortise is anatomic. There is no evidence of fracture nor dislocation. The collateral ligaments appear intact. Subtalar joint is intact. Achilles tendon appears normal. The medial and lateral flex or tendons of the ankle appear intact. There is mild subcutaneous edema around the ankle. Edema exten ds along the lateral fibula. There is also subcutaneous edema on the dorsum of the foot. The plantar fascia appears intact. There is no evidence of focal bone destruction. IMPRESSION: No fracture. No evidence of ligament or tendon tear. Subcutaneous edema around the lower leg and ankle. Subcutaneous edema around the forefoot.
== END | disposition home or self-care (01) ==
LOC: RADMRIMAIN 18:25
PROVIDERS: ATTEND Orthopaedic Surgery
DX: M89.8X7 Other specified disorders of bone, ankle and foot (principal); M25.571 Pain in right ankle and joints of right foot

== ENCOUNTER 2021-06-08 06:53 | Emergency (ER) | payer OTHER ==
[2021-06-08 07:00] VITALS: BP 161/90; PULSE 64; RESP 18; TEMP 97.7
[2021-06-08] MEDS ORDERED: methylPREDNISolone SOD SUCCI 125 MG/2 ML VIAL IM ONE (07:11)
--- NOTE | 2021-06-08 08:30 | XR ---
EXAMINATION TYPE: XR Hip RT and AP Pelvis DATE OF EXAM: 06/08/2021 COMPARISON: Right hip 10/19/2020 HISTORY: Trauma and pain TECHNIQUE: A single AP view of the pelvis is obtained. Two views of the right hip are obtained. FINDINGS: There is no acute fracture/dislocation evident in the pelvis. The hip and sacroiliac join ts appear symmetric and unremarkable. The overlying soft tissue appears unremarkable. Two views of right hip show no acute fracture or dislocation. No focal lytic or sclerotic lesion see n in the proximal right femur. The overlying soft tissue is unremarkable. Mild marginal spurring fe moral head, concentric joint space loss similar to prior exam consistent with mild osteoarthritis. IMPRESSION: There is no acute fracture or dislocation in the pelvis or right hip.
--- NOTE | 2021-06-08 08:32 | XR ---
Lumbar spine HISTORY: Trauma and pain 3 views lumbar spine correlated prior exam 01/18/2021 Surgical clips are again noted in the right upper quadrant. Lumbar vertebral bodies show stable heigh t, alignment, and bone mineralization. Disc spaces are unchanged and reduced. Sclerosis is present in the posterior elements of the lower lumbar spine. Is multilevel spondylosis. IMPRESSION: No acute fracture or subluxation. Degenerative disc disease. Facet arthropathy.
--- NOTE | 2021-06-08 08:33 | XR ---
Right knee HISTORY: Trauma and pain 4 views of the right knee, comparison to prior exam dated 03/26/2014 There is overlying artifact. Bone mineralization, joint spaces and alignment are maintained. No evide nt joint effusion. IMPRESSION: No fracture or dislocation.
--- NOTE | 2021-06-08 08:38 | ED ---
Fall HPI - General Chief Complaint: Fall Stated Complaint: [facility] Fall Time Seen by Provider: 06/08/21 07:02 Source: patient, RN notes reviewed Mode of arrival: ambulatory - History of Present Illness Initial Comments: 50-year-old female presents to the emergency department complaining of right hip low back and right knee pain after slipping on ice at work this morning. Patient notes that she does have history of a bulging disc in her low back. Patient was otherwise well-appearing noted that her pain was moderate. She noted that she really has no aggravating or alleviating factors at this time. She denied any weakness numbness tingling. She denied any saddle anesthesia. She denied bladder or bowel incontinence or retention. Patient denied chest pain shortness of breath headache nausea vomiting diarrhea constipation fever fatigue chills. - Related Data Home Medications Medication Instructions Recorded Confirmed Escitalopram [Lexapro] 10 mg PO DAILY 09/01/20 02/09/21 Levothyroxine Sodium [Synthroid] 75 mcg PO DAILY 09/01/20 02/09/21 Omeprazole 20 mg PO DAILY PRN 09/01/20 02/09/21 amLODIPine [Norvasc] 5 mg PO QAM 09/01/20 02/09/21 Previous Rx's Medication Instructions Recorded predniSONE 50 mg PO DAILY #5 tab 06/08/21 Allergies Allergy/AdvReac Type Severity Reaction Status Date / Time shellfish derived [Shrimp] Allergy Vomiting Verified 06/08/21 07:00 Review of Systems ROS Statement: Those systems with pertinent positive or pertinent negative responses have been documented in the HPI. ROS Other: All systems not noted in ROS Statement are negative. Past Medical History Past Medical History: Chest Pain / Angina, GERD/Reflux, Hypertension, Sleep Apnea/CPAP/BIPAP, Thyroid Disorder Additional Past Medical History / Comment(s): No CPAP use yet. Hypothyroid. History of Any Multi-Drug Resistant Organisms: None Reported Past Surgical History: Appendectomy, Cholecystectomy Additional Past Surgical History / Comment(s): Left achilles tendon repair. Past Anesthesia/Blood Transfusion Reactions: No Reported Reaction Past Psychological History: Anxiety, Depression Smoking Status: Never smoker Past Alcohol Use History: None Reported Past Drug Use History: None Reported - Past Family History Mother Family Medical History: Cancer, Osteoarthritis (OA), Rheumatoid Arthritis (RA) Additional Family Medical History / Comment(s): Breast Cancer. Brother(s) Family Medical History: Cancer Additional Family Medical History / Comment(s): Prostate Cancer. General Exam Limitations: no limitations General appearance: alert, in no apparent distress Head exam: Present: atraumatic, normocephalic, normal inspection Eye exam: Present: normal appearance, PERRL, EOMI. Absent: scleral icterus, conjunctival injection, periorbital swelling ENT exam: Present: normal exam, mucous membranes moist Neck exam: Present: normal inspection Respiratory exam: Present: normal lung sounds bilaterally. Absent: respiratory distress, wheezes, rales, rhonchi, stridor Cardiovascular Exam: Present: regular rate, normal rhythm, normal heart sounds. Absent: systolic murmur, diastolic murmur, rubs, gallop, clicks Extremities exam: Present: normal inspection, full ROM, normal capillary refill. Absent: tenderness, pedal edema, joint swelling, calf tenderness Back exam: Present: normal inspection, tenderness (Right SI) Neurological exam: Present: alert, oriented X3 Psychiatric exam: Present: normal affect, normal mood Skin exam: Present: warm, dry, intact, normal color. Absent: rash Course Vital Signs 06/08/21 06:57 Temperature 97.7 F Pulse Rate 64 Respiratory 18 Rate Blood Pressure 161/90 O2 Sat by Pulse 100 Oximetry Medical Decision Making - Medical Decision Making 50-year-old female complaining of right hip/low back pain with radiation to the right leg and right knee pain. X-ray of the lumbar spine, x-ray of the right hip and pelvis, x-ray the right knee ordered. 125 mg of Solu-Medrol ordered. X-ray imaging negative for any acute fractures dislocations. Given patient's physical exam finding of point tenderness over the right SI and negative imaging patient most likely has sciatica. Case discussed with Dr. Gavin, patient can discharge home. - Radiology Data Radiology results: report reviewed, image reviewed Right knee x-ray: No fracture dislocation. Lumbar spine x-ray: No acute fracture or subluxation. Degenerative disc disease, facet arthropathy. X-ray right hip and AP pelvis: There is no acute fracture dislocation in the pelvis or right hip. Disposition Clinical Impression: Fall, Sciatica, Lumbar radiculopathy Disposition: HOME SELF-CARE Condition: Stable Instructions (If sedation given, give patient instructions): Lumbar Radiculopathy (ED) Additional Instructions: Please return to the Emergency Department if symptoms worsen or any other concerns. Follow-up with primary care in 1-2 days. Take steroids as prescribed. Can take Tylenol and Motrin as needed for pain. Is patient prescribed a controlled substance at d/c from ED?: No Referrals: Ant Ly DO [Primary Care Provider] - 1-2 days Time of Disposition: 08:37
== END 2021-06-08 08:51 | disposition home or self-care (01) ==
LOC: EC 06:53
DX: M54.41 Lumbago with sciatica, right side (principal); M54.16 Radiculopathy, lumbar region; I10 Essential (primary) hypertension; E07.9 Disorder of thyroid, unspecified; Z79.890 Hormone replacement therapy; Z91.013 Allergy to seafood; Z79.899 Other long term (current) drug therapy; W00.0XXA Fall on same level due to ice and snow, initial encounter
CPT/HCPCS: 72100; 73502; 73564; 96372; 99284; J2930

== ENCOUNTER → 2021-08-25 | Outpatient (CLI) | payer OTHER ==
--- NOTE | 2021-08-25 16:20 | US ---
EXAMINATION TYPE: US pelvic complete DATE OF EXAM: 08/25/2021 COMPARISON: NONE CLINICAL HISTORY: 50-year-old female N95.0 POSTMENOPAUSAL BLEEDING. Pt states LMP 7 years ago. TECHNIQUE: Transabdominal sonographic images of the pelvis were acquired. Transvaginal sonographic i mages were medically necessary to better assess the following anatomy: Uterus Date of LMP: 7 years ago FINDINGS: EXAM MEASUREMENTS: Uterus: 7.9 x 3.8 x 3.8 cm Endometrial Stripe: 0.4 cm Right Ovary: 2.0 x 1.2 x 1.4 cm Left Ovary: 2.0 x 1.5 x 1.4 cm 1. Uterus: Anteverted. Slightly heterogeneous myometrium. 2. Endometrium: No abnormal thickening identified. 3. Right Ovary: wnl, difficult to see due to large amounts of active bowel. 4. Left Ovary: wnl, difficult to see due to large amounts of active bowel. 5. Bilateral Adnexa: Obscured by overlying bowel gas 6. Posterior cul-de-sac: wnl IMPRESSION: 1. Endometrial stripe measuring thin at approximately 4 mm in thickness. 2. Small bilateral postmenopausal ovaries, limited by adnexal bowel.
== END | disposition home or self-care (01) ==
LOC: RADUSWWP 14:14
PROVIDERS: ATTEND Obstetrics & Gynecology
DX: N95.9 Unspecified menopausal and perimenopausal disorder (principal)
CPT/HCPCS: 76830; 76856

== ENCOUNTER → 2021-12-15 | Outpatient (CLI) | payer OTHER ==
--- NOTE | 2021-12-16 08:19 | CT ---
EXAMINATION TYPE: CT chest w con DATE OF EXAM: 12/15/2021 COMPARISON: NONE HISTORY: chronic cough h/o covid in april 2020 CT DLP: 581 mGycm. Automated Exposure Control for Dose Reduction was Utilized. TECHNIQUE: CT scan of the thorax is performed following with IV Contrast, patient injected with 100 mL of Isovue 300. FINDINGS: LUNGS: A few small calcified nodules scattered throughout the right upper lobe measuring up to 7 mm a xial image 21. There is linear calcification right upper lobe axial image 24. There is calcified 7 mm right lower lobe nodule axial image 41. Lungs are grossly clear. There is no pleural effusion or pn eumothorax seen. The tracheobronchial tree is patent. MEDIASTINUM: There are no greater than 1 cm noncalcified hilar or mediastinal lymph nodes. Some calc ified paratracheal and subcarinal lymph nodes are seen. No cardiomegaly or pericardial effusion is se en. There is left-sided arch with a beer and right brachiocephalic artery running posterior to the e sophagus, normal variant. OTHER: Small sized hiatal hernia. Scattered calcifications throughout the spleen. IMPRESSION: Evidence of old granulomatous disease. No acute pulmonary process.
== END | disposition home or self-care (01) ==
LOC: RADCTMAIN 14:41
PROVIDERS: ATTEND Family Medicine
DX: R05.3 Chronic cough (principal); R06.02 Shortness of breath
CPT/HCPCS: 71260; Q9967

== ENCOUNTER → 2021-12-19 | Outpatient (CLI) | payer OTHER ==
--- NOTE | 2021-12-19 16:58 | BD ---
EXAMINATION TYPE: Axial Bone Density DATE OF EXAM: 12/19/2021 COMPARISON: 03/17/2010 CLINICAL HISTORY: 51 years year old Female. ICD-10 CODE: Z780, N951, [id number] SCREENING FOR OSTEOPORESI S Height: 66.5 IN Weight: 218 LBS FRAX RISK QUESTIONS: Secondary Osteoporosis: 3. Menopause before 45: AGE 42 Rheumatoid Arthritis: YES RISK FACTORS HISTORY OF: Family History of Osteoporosis: YES MOTHER Active: YES Diet low in dairy products/other sources of calcium: YES Postmenopausal woman: AGE 42 MEDICATIONS: Thyroid Medications: YES Which medication: Synthroid How Lon+ YEARS Additional Medications: VIT D, SYNTHROID, EXAM MEASUREMENTS: Bone mineral densitometry was performed using the Ondax System. Bone mineral density as measured about the Lumbar spine is: ----- L1-L4(G/cm2): 1.345 T Score Values are as follows: ----- L1: 0.7 ----- L2: 1.3 ----- L3: 1.8 ----- L4: 1.4 ----- L1-L4: 1.4 Bone mineral density has: Decreased -16.8% since study of: 03/17/2010 Bone mineral density about the R hip (g/cm2): 0.970 Bone mineral density about the L hip (g/cm2): 1.094 T Score values are as follows: -----R Neck: -0.5 -----L Neck: 0.4 -----R Total: 0.8 -----L Total: 1.4 Bone mineral density has: Decreased -6.5% since study of: 03/17/2010 FRAX%s: The graph provided illustrates a chance for a major osteoporotic fx and a chance for the hips probability for fx in 10 years time. IMPRESSION: Normal (Values between +1 and -1 indicate normal bone mass). Consider repeating this study in 5 year s or sooner if there is some new clinical indication. NOTE: T-SCORE=SD OF THE YOUNG ADULT MEAN.
--- NOTE | 2021-12-20 13:51 | MM ---
Reason for Exam: Screening (asymptomatic). Last mammogram was performed 2 year(s) and 11 month(s) ago. Patient History: Menarche at age 14. First Full-Term at age 21. Postmenopausal. 12/08/1997, Benign Excisional Biopsy on the right side. Maternal aunt had breast cancer at or over age 50. Cousin had breast cancer at or over age 50. Mother had breast cancer, age 60. Risk Values: Sydney 5 year model risk: 2.2%. NCI Lifetime model risk: 17.0%. Prior Study Comparison: 08/14/2014 Bilateral Screening Mammogram, [facility]. 09/23/2015 Bilateral Screening Mammogram, [facility]. 01/29/2019 Bilateral Screening Mammogram, [facility]. Tissue Density: The breast tissue is heterogeneously dense. This may lower the sensitivity of mammography. Findings: Analyzed By CAD. No suspicious groups of microcalcifications, spiculated or lobular masses, architectural distortion or other secondary signs of malignancy are mammographically apparent. Overall Assessment: Benign, BI-RAD 2 Management: Screening Mammogram of both breasts in 1 year. A negative mammogram report should not preclude additional follow up of suspicious palpable abnormalities. Patient should continue monthly self breast exam. A clinical breast exam by your physician is recommended on an annual basis and results should be correlated with mammographic findings. Electronically signed and approved by: Ta Mckeon D.O. Radiologis
== END | disposition home or self-care (01) ==
LOC: RADMAMWWP 14:48
PROVIDERS: ATTEND Obstetrics & Gynecology
DX: Z12.31 Encounter for screening mammogram for malignant neoplasm of breast (principal); Z13.820 Encounter for screening for osteoporosis; N95.1 Menopausal and female climacteric states; Z80.3 Family history of malignant neoplasm of breast
CPT/HCPCS: 77067; 77080

== ENCOUNTER → 2023-02-27 | Outpatient (CLI) | payer OTHER ==
--- NOTE | 2023-02-27 14:38 | US ---
EXAMINATION TYPE: US thyroid st tissue head/neck DATE OF EXAM: 02/27/2023 COMPARISON: NONE CLINICAL INDICATION: Female, 52 years old with history of E03.9 hypothyroi R13.13 dysphagia E04.1 t hy nod; thy nodule GLAND SIZE: Right Lobe: 5.3 x 1.4 x 1.0 cm Overall Parenchyma: homogenous Left Lobe: 5.0 x 1.2 x 1.3 cm Overall Parenchyma: homogeneous Isthmus Thickness: .2 cm NODULES RIGHT: # of nodules measured on right: 1 1. .8 X .6 x .7 cm, mid , solid or almost completely solid, hypoechoic nodule, which is wider than tall, with ill-defined margins, without echogenic foci. Prior size: 1.2 x .5 x .7 cm LEFT: # of nodules measured on left: 0 ISTHMUS: # of nodules measured in the isthmus: 0 Bilateral neck scanned, no evidence of lymphadenopathy. IMPRESSION: 1. Mild thyroidomegaly. 2. Subcentimeter right-sided thyroid nodule is nonspecific however has decreased in size.
== END | disposition home or self-care (01) ==
LOC: RADUSWWP 12:56
PROVIDERS: ATTEND Family Medicine
DX: E04.1 Nontoxic single thyroid nodule (principal); E03.9 Hypothyroidism, unspecified; R13.13 Dysphagia, pharyngeal phase
CPT/HCPCS: 76536

== ENCOUNTER → 2023-02-27 | Outpatient (CLI) | payer OTHER ==
--- NOTE | 2023-02-28 10:09 | MM ---
Reason for Exam: Screening (asymptomatic). Last mammogram was performed 1 year(s) and 2 month(s) ago. Patient History: Menarche at age 14. First Full-Term at age 21. Postmenopausal. 12/08/1997, Benign Excisional Biopsy on the right side. Maternal aunt had breast cancer at or over age 50. Cousin had breast cancer at or over age 50. Mother had breast cancer, age 60. Risk Values: Sydney 5 year model risk: 2.3%. NCI Lifetime model risk: 16.8%. Prior Study Comparison: 09/23/2015 Bilateral Screening Mammogram, [facility]. 01/29/2019 Bilateral Screening Mammogram, [facility]. 12/19/2021 Bilateral MG screening mammo w CAD, [facility]. Tissue Density: The breast tissue is heterogeneously dense. This may lower the sensitivity of mammography. Findings: Analyzed By CAD. There is no suspicious group of microcalcifications or new suspicious mass in either breast. Overall Assessment: Benign, BI-RAD 2 Management: Screening Mammogram of both breasts in 1 year. A clinical breast exam by your physician is recommended on an annual basis and results should be correlated with mammographic findings. Note on Sydney scores and lifetime risk: 1. A Sydney score greater than 3% is considered moderate risk. If this is the case, consider specialist referral to assess eligibility for a risk reducing agent. If overall lifetime risk for the development of breast cancer is 20% or higher, the patient may qualify for future screening with alternating mammogram and breast MRI. Electronically signed and approved by: Gilmer Mejía D.O.
== END | disposition home or self-care (01) ==
LOC: RADMAMWWP 12:57
PROVIDERS: ATTEND Obstetrics & Gynecology
DX: Z12.31 Encounter for screening mammogram for malignant neoplasm of breast (principal); Z78.0 Asymptomatic menopausal state; Z80.3 Family history of malignant neoplasm of breast
CPT/HCPCS: 77067

== ENCOUNTER → 2023-05-07 | Outpatient (CLI) | payer OTHER ==
--- NOTE | 2023-05-07 12:14 | XR ---
EXAMINATION TYPE: XR cervical spine comp DATE OF EXAM: 05/07/2023 COMPARISON: 11/21/2012 HISTORY: Pain TECHNIQUE: Four views are submitted. FINDINGS: The odontoid is intact. There are no compression deformities. The prevertebral soft tissue structures are within normal limits. There is apparent fusion at C5-C6 with mild narrowing the disc space at C6 -C7 and C4-C5. Posterior spondylosis at C4-C5 noted and there appears be bilateral foraminal encroach ment at this level. IMPRESSION- 1. Cervical fusion at C5-C6. 2. Posterior spondylosis and degenerative disc disease at C4-C5 results in bilateral foraminal encroa chment. Consider MRI follow-up.
--- NOTE | 2023-05-07 12:28 | XR ---
EXAMINATION TYPE: XR wrist complete RT DATE OF EXAM: 05/07/2023 COMPARISON: NONE HISTORY: Pain TECHNIQUE: Four views submitted. FINDINGS: The osseous structures are intact. The joint spaces are preserved and there is no acute fracture or dislocation. IMPRESSION: 1. No definite acute fracture or dislocation if symptoms persist, follow-up study in 7 to 10 days wo uld be suggested
== END | disposition home or self-care (01) ==
LOC: RADXRYALE 11:24
PROVIDERS: ATTEND Physician Assistant Medical
DX: M47.812 Spondylosis without myelopathy or radiculopathy, cervical region (principal); M50.321 Other cervical disc degeneration at C4-C5 level; M25.531 Pain in right wrist; Z98.1 Arthrodesis status
CPT/HCPCS: 72050

== ENCOUNTER → 2023-05-11 | Outpatient (CLI) | payer OTHER ==
--- NOTE | 2023-05-13 11:46 | MR ---
EXAMINATION TYPE: MR cervical spine wo con DATE OF EXAM: 05/11/2023 10:07 PM CLINICAL INDICATION:Female, 52 years old with history of S09.90XA unspecified injury of head; PHH, Ne ck pain into arms, Headaches COMPARISON: 12/06/2012. TECHNIQUE: Multi planar, multi sequence imaging was performed utilizing: T1-weighted, T2-weighted, an d turbo inversion recovery imaging of the cervical spine. IV Contrast: cc (none if empty) FINDINGS: Alignment: The cervical vertebral bodies have preserved heights. Alignment is within normal limits gi jimmy patient positioning. Bones: Multilevel degeneration changes of the cervical spine with disc space narrowing, osteophyte fo rmation with facet uncovertebral joint arthropathy. . There is some mild scoliosis changes to the spi ne. Cord: The spinal cord is unremarkable with regards to their signal intensity and morphology. Discs: Multilevel disc desiccation is present. C2-C3: No significant disc pathology. The spinal canal is patent. No neural foraminal stenosis. C3-C4: No significant disc pathology. The spinal canal is patent. Bilateral facet and uncovertebral joint arthropathy are present with mild bilateral neural foraminal stenosis. C4-C5: A disc osteophyte complex is present with mild spinal canal stenosis. Bilateral facet and unc overtebral joint arthropathy are present with moderate to severe left and mild right neural foraminal stenosis. C5-C6: No significant disc pathology. The spinal canal is patent. No neural foraminal stenosis. C6-C7: No significant disc pathology. The spinal canal is patent. Bilateral facet and uncovertebral joint arthropathy are present with mild to moderate bilateral neural foraminal stenosis. C7-T1: No significant disc pathology. The spinal canal is patent. Bilateral facet and uncovertebral joint arthropathy are present with of moderate right and mild left neural foraminal stenosis. Other: None. IMPRESSION: 1. No evidence for disc herniation or significant spinal canal stenosis. 2. Interval progression of degeneration of the neck compared to 2013. Mild to moderate disc degenerat ion with associated osteoarthritic changes. Neural foraminal stenosis worse at C4-C5 with moderate to severe left neural foraminal stenosis.
== END | disposition home or self-care (01) ==
LOC: RADMRIMAIN 21:45
PROVIDERS: ATTEND Family Medicine
DX: S09.90XA Unspecified injury of head, initial encounter (principal); M50.30 Other cervical disc degeneration, unspecified cervical region; M99.71 Connective tissue and disc stenosis of intervertebral foramina of cervical region; M47.812 Spondylosis without myelopathy or radiculopathy, cervical region; X58.XXXA Exposure to other specified factors, initial encounter
CPT/HCPCS: 72141

== ENCOUNTER 2023-08-24 12:00 | Observation (INO) | payer OTHER ==
--- NOTE | 2023-08-24 12:38 | ED ---
General Adult HPI - General Chief complaint: Chest Pain Stated complaint: Chest Pain Time Seen by Provider: 08/24/23 12:07 Source: patient, RN notes reviewed, old records reviewed Mode of arrival: ambulatory Limitations: no limitations - History of Present Illness Initial comments: Patient is a 52-year-old female who presents emergency department complaining of chest pain. States it has been present since 2 AM. It is improved from earlier. Describes it as a tightness sensation with radiation to bilateral shoulders. Has a history of chronic shoulder pain from cervical spine degeneration and is due to have surgery on it. States pain is not worse with movement. States pain is worse with deep inspiration. Pain is not worse on palpation. Denies shortness of breath, nausea, vomiting, diarrhea. Denies any headaches. Denies any visual changes. Presents for further evaluation for evaluation of chest pain. No history of cardiac issues for the patient. - Related Data Home Medications Medication Instructions Recorded Confirmed Escitalopram [Lexapro] 10 mg PO HS 09/01/20 08/24/23 Levothyroxine Sodium [Synthroid] 75 mcg PO DAILY 09/01/20 08/24/23 Omeprazole 20 mg PO DAILY PRN 09/01/20 08/24/23 Ibuprofen [Motrin] 800 mg PO Q8H PRN 08/24/23 08/24/23 Multivitamins, Thera [Multivitamin 1 tab PO DAILY 08/24/23 08/24/23 (formulary)] Allergies Allergy/AdvReac Type Severity Reaction Status Date / Time shellfish derived [Shrimp] AdvReac Vomiting Verified 08/24/23 14:36 Review of Systems ROS Statement: Those systems with pertinent positive or pertinent negative responses have been documented in the HPI. Review of Systems: CONST: Denies fever EYES: Denies blurry vision ENT: Denies nasal congestion C/V: Endorses chest pain RESP: Denies shortness of breath GI: Denies abdominal pain : Denies dysuria SKIN: Denies rash. MSK: Denies joint pain. NEURO: Denies headache ROS Other: All systems not noted in ROS Statement are negative. Past Medical History Past Medical History: Chest Pain / Angina, GERD/Reflux, Hypertension, Sleep Apnea/CPAP/BIPAP, Thyroid Disorder Additional Past Medical History / Comment(s): No CPAP use yet. Hypothyroid. History of Any Multi-Drug Resistant Organisms: None Reported Past Surgical History: Appendectomy, Cholecystectomy Additional Past Surgical History / Comment(s): Left achilles tendon repair. Past Anesthesia/Blood Transfusion Reactions: No Reported Reaction Past Psychological History: Anxiety, Depression Smoking Status: Never smoker Past Alcohol Use History: None Reported Past Drug Use History: None Reported - Past Family History Mother Family Medical History: Cancer, Osteoarthritis (OA), Rheumatoid Arthritis (RA) Additional Family Medical History / Comment(s): Breast Cancer. Brother(s) Family Medical History: Cancer Additional Family Medical History / Comment(s): Prostate Cancer. General Exam - General Exam Comments Initial Comments: General: Appears in no acute distress. HEAD: Normal with no signs of head trauma. EYES: PERRLA, EOMI, conjunctiva normal, no discharge. ENT: Hearing grossly intact, normal oropharynx. RESPIRATORY: Clear breath sounds bilaterally. No wheezes, rales, or rhonchi. C/V: Regular rate and rhythm. S1 and S2 auscultated, no edema, peripheral pulses 2+ and intact throughout. Chest pain not reproducible by palpation. ABD: Abd is soft, nontender, nondistended EXT: Normal range of motion, no obvious deformity SKIN: No rashes or lesions observed on exposed skin. NEURO: Alert and oriented x 4. No focal deficits. Limitations: no limitations Course Vital Signs 08/24/23 08/24/23 08/24/23 12:01 16:11 17:47 Temperature 97.6 F Pulse Rate 94 80 86 Respiratory 18 16 16 Rate Blood Pressure 159/87 150/82 149/88 O2 Sat by Pulse 99 98 98 Oximetry Medical Decision Making - Medical Decision Making Was pt. sent in by a medical professional or institution (, PA, LIFE SKILLS SPECIALIST, urgent care, hospital, or long-term...) When possible be specific @ -No Did you speak to anyone other than the patient for history (EMS, parent, family, police, friend...)? What history was obtained from this source @ -No Did you review nursing and triage notes (agree or disagree)? Why? @ -I reviewed and agree with nursing and triage notes Were old charts reviewed (outside hosp., previous admission, EMS record, old EKG, old radiological studies, urgent care reports/EKG's, long-term records)? Report findings @ -Old charts reviewed Differential Diagnosis (chest pain, altered mental status, abdominal pain women, abdominal pain men, vaginal bleeding, weakness, fever, dyspnea, syncope, headache, dizziness, GI bleed, back pain, seizure, CVA, palpatations, mental health, musculoskeletal)? @ -Differential Chest Pain: Stable Angina, Unstable Angina, STEMI, NSTEMI Aortic Dissection, Pneumothorax, Musculoskeletal, Esophageal Spasm GERD, Cholecystitis, Pancreatitis, Zoster, this is not meant to be an all-inclusive list. EKG interpreted by me (3pts min.). @ -As above X-rays interpreted by me (1pt min.). @ -Chest x-ray reveals no obvious acute cardiopulmonary process. CT interpreted by me (1pt min.). @ -None done U/S interpreted by me (1pt. min.). @ -None done What testing was considered but not performed or refused? (CT, X-rays, U/S, labs)? Why? @ -None What meds were considered but not given or refused? Why? @ -None Did you discuss the management of the patient with other professionals (pr ofessionals i.e. , PA, LIFE SKILLS SPECIALIST, lab, RT, psych nurse, social welfare research worker, surgical attendant, teacher, civil preparedness training officer, casework manager)? Give summary @ -No Was smoking cessation discussed for >3mins.? @ -No Was critical care preformed (if so, how long)? @ -No Were there social determinants of health that impacted care today? How? (Homelessness, low income, unemployed, alcoholism, drug addiction, transportation, low edu. Level, literacy, decrease access to med. care, alf, rehab)? @ -No Was there de-escalation of care discussed even if they declined (Discuss DNR or withdrawal of care, Hospice)? DNR status @ -No What co-morbidities impacted this encounter? (DM, HTN, Smoking, COPD, CAD, Cancer, CVA, ARF, Chemo, Hep., AIDS, mental health diagnosis, sleep apnea, morbid obesity)? @ -None Was patient admitted / discharged? Hospital course, mention meds given and route, prescriptions, significant lab abnormalities, going to OR and other pertinent info. @ -Based on the patient's presentation and physical exam, patient presents with chest pain. We will obtain cardiac workup. Patient will also be screened for PE with a D-dimer. Vital signs are within acceptable limits. Patient will be given 324 mg of aspirin as well as sublingual nitroglycerin tablets and a liter of fluid. She was in agreement this plan. EKG showed no signs of acute ischemia.Chest x-ray reveals no obvious acute cardiopulmonary process. Patient's laboratory studies are remarkable for undetectable troponin, D-dimer within acceptable limits, BNP that is unremarkable. On reevaluation, patient's chest pain is unresolved or unchanged with nitro. Patient will be administered morphine at this time. She was in agreement this plan. I did offer observation admission and she was in agreement this plan. Heart score is boarderline moderate at 3-4. Morphine did greatly improve the patient's chest pain. She will be admitted for cardiac observation. Will trend the troponin. Cardiology consulted. I spoke with the admitting team, Dr. Jerod [facility] who accepted the admission. Undiagnosed new problem with uncertain prognosis? @ -No Drug Therapy requiring intensive monitoring for toxicity (Heparin, Nitro, Ins ulin, Cardizem)? @ -No Were any procedures done? @ -No Diagnosis/symptom? @ -Chest pain Acute, or Chronic, or Acute on Chronic? @ -Acute Uncomplicated (without systemic symptoms) or Complicated (systemic symptoms)? @ -Complicated Side effects of treatment? @ -None Exacerbation, Progression, or Severe Exacerbation] @ -No Poses a threat to life or bodily function? @ -Possibly, yes - Lab Data Result diagrams: 08/24/23 12:29 08/24/23 12:29 Lab Results 08/24/23 08/24/23 08/24/23 Range/Units 12:29 12:29 12:29 WBC 9.4 (3.8-10.6) k/uL RBC 4.39 (3.80-5.40) m/uL Hgb 13.0 (11.4-16.0) gm/dL Hct 40.9 (34.0-46.0) % MCV 93.2 (80.0-100.0) fL MCH 29.5 (25.0-35.0) pg MCHC 31.7 (31.0-37.0) g/dL RDW 12.6 (11.5-15.5) % Plt Count 223 (150-450) k/uL MPV 7.7 Neutrophils % 72 % Lymphocytes % 17 % Monocytes % 8 % Eosinophils % 1 % Basophils % 0 % Neutrophils # 6.8 (1.3-7.7) k/uL Lymphocytes # 1.6 (1.0-4.8) k/uL Monocytes # 0.8 (0-1.0) k/uL Eosinophils # 0.1 (0-0.7) k/uL Basophils # 0.0 (0-0.2) k/uL PT 9.8 L (10.0-12.5) sec INR 0.9 (<1.2) APTT 26.0 (22.0-30.0) sec D-Dimer 0.29 (<0.60) mg/L FEU Sodium 141 (137-145) mmol/L Potassium 4.1 (3.5-5.1) mmol/L Chloride 108 H (98-107) mmol/L Carbon Dioxide 25 (22-30) mmol/L Anion Gap 8 mmol/L BUN 11 (7-17) mg/dL Creatinine 0.86 (0.52-1.04) mg/dL Est GFR (CKD-EPI)AfAm 90 (>60 ml/min/1.73 sqM) Est GFR (CKD-EPI)NonAf 78 (>60 ml/min/1.73 sqM) Glucose 94 (74-99) mg/dL Calcium 9.1 (8.4-10.2) mg/dL Magnesium 2.1 (1.6-2.3) mg/dL Total Bilirubin 0.6 (0.2-1.3) mg/dL AST 22 (14-36) U/L ALT 18 (4-34) U/L Alkaline Phosphatase 83 (38-126) U/L Troponin I (0.000-0.034) ng/mL NT-Pro-B Natriuret Pep 66 pg/mL Total Protein 6.3 (6.3-8.2) g/dL Albumin 3.8 (3.5-5.0) g/dL Lipase 59 (23-300) U/L 08/24/23 Range/Units 12:29 WBC (3.8-10.6) k/uL RBC (3.80-5.40) m/uL Hgb (11.4-16.0) gm/dL Hct (34.0-46.0) % MCV (80.0-100.0) fL MCH (25.0-35.0) pg MCHC (31.0-37.0) g/dL RDW (11.5-15.5) % Plt Count (150-450) k/uL MPV Neutrophils % % Lymphocytes % % Monocytes % % Eosinophils % % Basophils % % Neutrophils # (1.3-7.7) k/uL Lymphocytes # (1.0-4.8) k/uL Monocytes # (0-1.0) k/uL Eosinophils # (0-0.7) k/uL Basophils # (0-0.2) k/uL PT (10.0-12.5) sec INR (<1.2) APTT (22.0-30.0) sec D-Dimer (<0.60) mg/L FEU Sodium (137-145) mmol/L Potassium (3.5-5.1) mmol/L Chloride (98-107) mmol/L Carbon Dioxide (22-30) mmol/L Anion Gap mmol/L BUN (7-17) mg/dL Creatinine (0.52-1.04) mg/dL Est GFR (CKD-EPI)AfAm (>60 ml/min/1.73 sqM) Est GFR (CKD-EPI)NonAf (>60 ml/min/1.73 sqM) Glucose (74-99) mg/dL Calcium (8.4-10.2) mg/dL Magnesium (1.6-2.3) mg/dL Total Bilirubin (0.2-1.3) mg/dL AST (14-36) U/L ALT (4-34) U/L Alkaline Phosphatase (38-126) U/L Troponin I <0.012 (0.000-0.034) ng/mL NT-Pro-B Natriuret Pep pg/mL Total Protein (6.3-8.2) g/dL Albumin (3.5-5.0) g/dL Lipase (23-300) U/L - EKG Data -: EKG Interpreted by Me EKG Comments: 12-lead Electrocardiogram Interpretation Note EKG was reviewed and interpreted by myself. 12-lead ECG performed at 1211 is interpreted by me as revealing normal sinus rhythm at a rate of 86 beats per minute. Left axis deviation. NH interval is 184 ms, QRS duration is 102. QTc is 409 ms. There were no ST or T wave abnormalities to suggest myocardial ischemia or injury. R wave progression across the precordium was satisfactory. By my interpretation this EKG is non-diagnostic for acute ischemia. Disposition Clinical Impression: Chest pain Disposition: ADMITTED IP TO THIS HOSP Condition: Stable Time of Disposition: 13:42
[2023-08-24 12:47] LABS: Basophils % (A) 0 %; Eosinophils # (A) 0.1 k/uL (0-0.7); Eosinophils % (A) 1 %; HCT 40.9 % (34.0-46.0); Lymphocytes # (A) 1.6 k/uL (1.0-4.8); Lymphocytes % (A) 17 %; MCH 29.5 pg (25.0-35.0); MCHC 31.7 g/dL (31.0-37.0); MCV 93.2 fL (80.0-100.0); Mean Platelet Volume 7.7; Monocytes # (A) 0.8 k/uL (0-1.0); Monocytes % (A) 8 %; Neutrophils # (A) 6.8 k/uL (1.3-7.7); Neutrophils % (A) 72 %; Platelet Count 223 k/uL (150-450); RBC 4.39 m/uL (3.80-5.40); RDW 12.6 % (11.5-15.5); WBC 9.4 k/uL (3.8-10.6)
[2023-08-24 12:54] LABS: ALT 18 U/L (4-34); AST 22 U/L (14-36); African American GFR (CKD) 90 (>60 ml/min/1.73 sqM); Albumin 3.8 g/dL (3.5-5.0); Alkaline Phosphatase 83 U/L (38-126); Anion Gap 8 mmol/L; Blood Urea Nitrogen 11 mg/dL (7-17); Calcium 9.1 mg/dL (8.4-10.2); Carbon Dioxide 25 mmol/L (22-30); Chloride 108 mmol/L (98-107); Glucose 94 mg/dL (74-99); Lipase 59 U/L (23-300); Magnesium 2.1 mg/dL (1.6-2.3); Non-African American GFR(CKD) 78 (>60 ml/min/1.73 sqM); Potassium 4.1 mmol/L (3.5-5.1); Sodium 141 mmol/L (137-145); Total Bilirubin 0.6 mg/dL (0.2-1.3); Total Protein 6.3 g/dL (6.3-8.2)
[2023-08-24] MEDS: NITROGLYCERIN SL TABS 0.4 MG TAB SUBLINGUAL STA (12:59)
[2023-08-24] MEDS: SODIUM CHLORIDE 0.9% 1,000 ML IV STA (12:59)
[2023-08-24] MEDS: ASPIRIN 81 MG PO STA (12:59)
[2023-08-24 13:00] LABS: NT-Pro-B-Type Natriuretic Pept 66 pg/mL
[2023-08-24 13:02] LABS: INR 0.9 (<1.2); Prothrombin Time 9.8 sec (10.0-12.5)
[2023-08-24] MEDS: MORPHINE SULFATE 4 MG/ML SYRINGE IVP STA (13:22)
--- NOTE | 2023-08-24 13:25 | XR ---
EXAMINATION TYPE: XR chest 2V DATE OF EXAM: 08/24/2023 COMPARISON: 12/21/2020 TECHNIQUE: PA and lateral views submitted. HISTORY: Chest pain FINDINGS: The lungs are clear and there is no pneumothorax, pleural effusion, or focal pneumonia. Heart size normal and no overt failure. Osseous structures demonstrate hypertrophic and degenerative changes of the spine. Tiny granuloma noted in bilateral lungs. Calcified lymph node left perihilum. Findings sta ble. Gallbladder fossa surgical clips. IMPRESSION: 1. No acute process.
[2023-08-24] MEDS ORDERED: MORPHINE SULFATE 4 MG/ML SYRINGE IV PRN ×2 (13:41→14:49)
[2023-08-24] MEDS ORDERED: NALOXONE 0.4 MG/ML 1 ML VIAL IV PRN (13:41)
[2023-08-24] MEDS ORDERED: ONDANSETRON 4 MG/2 ML VIAL IVP PRN (13:41)
[2023-08-24] MEDS: ORPHENADRINE 30 MG/ML 2 ML VIAL IVP STA (16:03)
[2023-08-24] MEDS: KETOROLAC 15 MG/ML 1 ML VIAL IVP STA (16:03)
[2023-08-24] MEDS: HEPARIN SODIUM,PORCINE 5,000 UNIT/ML 1 ML VIAL SQ SCH (16:03)
--- NOTE | 2023-08-24 16:12 | P.HPIM ---
History of Present Illness H&P Date: 08/24/23 History of Presenting Illness: Patient is a very pleasant 52-year-old female with a past medical history of hypertension, hypothyroidism, GERD, depression and anxiety. She presented to the emergency department with a chief complaint of chest pain. She reports awakening around 2 AM with a tightness and sharp pain to midsternal chest radiating to bilateral shoulders worse on right extending up into right lateral neck. Patient reports she is scheduled to undergo cervical spinal surgery at [facility] next month secondary to severe cervical spine degeneration. Patient reports increased pain with movement and upon taking a deep breath. She also reports intermittent numbing/tingling sensation in bilateral hands worse on left. She reports she took a omeprazole at home because she also has GERD and thought it might be a flareup of that, but came to the emergency department after no improvement with pain medication or omeprazole as she was concerned it may be her heart. Patient denies having any headache, lightheadedness, diz ziness, palpitations, shortness of breath, or experiencing any focal weakness or swelling in her extremities. She underwent full evaluation in the emergency department. Vital signs upon arrival showing blood pressure 159/87, heart rate 94, respiratory rate 18, temp 97.6 F, and SpO2 of 99% on room air. EKG completed showing normal sinus rhythm at 86 bpm with no significant T wave or ST abnormalities showing no signs of acute ischemia. Chest x-ray completed and reviewed negative for acute cardiopulmonary process. Labs completed and reviewed. CBC unremarkable. BMP also normal findings with exception of mild elevated chloride of 108 otherwise normal findings. Blood glucose 94. Liver profile unremarkable. Troponin negative at less than 0.012 and proBNP of 66. Coagulation profile normal finding and D-dimer was negative at 0.29. Lipase normal findings at 59. Patient given aspirin 324 mg p.o. x 1 dose along with morphine 4 mg IVP in the emergency department. Patient admitted under our services with consultation to cardiology. Review of systems: Pertinent positives and negatives as discussed in HPI, a complete review of systems was performed and all other systems are negative. Physical exam: Vital signs reviewed and stable. General: Nontoxic, no distress and appears stated age. Derm: Skin warm and dry, normal coloration for ethnicity. Head: Atraumatic, normocephalic and symmetric. Eyes: EOMs intact, no lid lag, and anicteric sclera Mouth: no lip lesions, mucus membranes moist Cardiovascular: regular rate and rhythm with normal S1S2, no murmur, positive posterior tibial pulses bilaterally, and cap refill < 2 seconds. Chest nontender to palpation. Lungs: Respirations even, regular, and unlabored on room air. Lungs CTA bilaterally, no rhonchi, no rales, no wheezing, and no accessory muscle usage. Abdominal: soft, nontender to palpation, no guarding, no appreciable organomegaly Ext: ROM intact. No gross muscle atrophy, no edema, no contractures Neuro: Speech clear, face symmetrical and CN II-XII grossly intact with no noted focal neuro deficits Psych: Alert and oriented to person, place, time, and situation. Appropriate and pleasant affect. Assessment and Plan of Care: Chest pain, concerning for pleurisy vs gastroesophageal reflux vs musculoskeletal type pain and less likely cardiac related Cervical spinal stenosis, previously known scheduled to undergo cervical spinal surgery at [facility] next month GERD Hypertension Hypothyroidism Anxiety and depression -Cardiology consulted, appreciate recommendations -Telemetry monitoring -Trend troponins -Cardiac diet -Order placed for Norflex 60 mg IVP x 1 dose and Toradol 15 mg IVP x 1 dose. -Order also placed for GI cocktail consisting of lidocaine, Maalox, and Levsin. -Aspirin 81 mg daily Data and imaging reviewed: As stated above in HPI The patient is admitted with an anticipated less than 2 midnight stay for be luation of chest pain CODE STATUS: Full code DVT prophylaxis: Heparin Anticipated discharge date: 24 to [address]: Home Patient was seen independently by Nurse Practitioner. This document was prepared using [employer] dictation software. Please allow for errors in sat act instructor while rare they do occur. I reviewed the documentation as provided by the RONY above, who is the original author of this note. I agree with the documented assessment and plan, with the following changes: none Past Medical History Past Medical History: Chest Pain / Angina, GERD/Reflux, Hypertension, Sleep Apnea/CPAP/BIPAP, Thyroid Disorder Additional Past Medical History / Comment(s): No CPAP use yet. Hypothyroid. History of Any Multi-Drug Resistant Organisms: None Reported Past Surgical History: Appendectomy, Cholecystectomy Additional Past Surgical History / Comment(s): Left achilles tendon repair. Past Anesthesia/Blood Transfusion Reactions: No Reported Reaction Past Psychological History: Anxiety, Depression Smoking Status: Never smoker Past Alcohol Use History: None Reported Past Drug Use History: None Reported - Past Family History Mother Family Medical History: Cancer, Osteoarthritis (OA), Rheumatoid Arthritis (RA) Additional Family Medical History / Comment(s): Breast Cancer. Brother(s) Family Medical History: Cancer Additional Family Medical History / Comment(s): Prostate Cancer. Medications and Allergies Home Medications Medication Instructions Recorded Confirmed Type Escitalopram [Lexapro] 10 mg PO HS 09/01/20 08/24/23 History Levothyroxine Sodium [Synthroid] 75 mcg PO DAILY 09/01/20 08/24/23 History Omeprazole 20 mg PO DAILY PRN 09/01/20 08/24/23 History Ibuprofen [Motrin] 800 mg PO Q8H PRN 08/24/23 08/24/23 History Multivitamins, Thera [Multivitamin 1 tab PO DAILY 08/24/23 08/24/23 History (formulary)] Allergies Allergy/AdvReac Type Severity Reaction Status Date / Time shellfish derived [Shrimp] AdvReac Vomiting Verified 08/24/23 14:36 Physical Exam Osteopathic Statement: *. No significant issues noted on an osteopathic structural exam other than those noted in the History and Physical/Consult. Vitals: Vital Signs Temp Pulse Resp BP Pulse Ox 08/24/23 12:01 97.6 F 94 18 159/87 99 Intake and Output 08/23/23 08/24/23 08/24/23 22:59 06:59 14:59 Other: Weight 99.79 kg Results CBC & Chem 7: 08/24/23 12:29 08/24/23 12:29 Labs: Abnormal Lab Results - Last 24 Hours (Table) 08/24/23 08/24/23 Range/Units 12:29 12:29 PT 9.8 L (10.0-12.5) sec Chloride 108 H (98-107) mmol/L
[2023-08-24] MEDS: MAG HYDROX/AL HYDROX/SIMETH 30 ML, HYOSCYAMINE ELIXIR 10 ML, LIDOCAINE VISCOUS 10 ML PO ONE (17:45)
[2023-08-24] MEDS: ESCITALOPRAM 10 MG TAB PO SCH (21:04)
[2023-08-24] MEDS: KETOROLAC 15 MG/ML 1 ML VIAL IVP PRN (21:48)
[2023-08-25] MEDS: LEVOTHYROXINE 75 MCG TAB PO SCH (06:28)
[2023-08-25] MEDS: PANTOPRAZOLE 40 MG TABLET PO SCH (06:28)
[2023-08-25] MEDS: ASPIRIN 81 MG PO SCH (08:43)
[2023-08-25] MEDS: MULTIVITAMINS, THERA 1 EACH TAB PO SCH (08:43)
[2023-08-25 09:58] LABS: Basophils # (A) 0.03 X 10*3/uL (0.00-0.10); Basophils % (A) 0.4 %; Eosinophils # (A) 0.09 X 10*3/uL (0.04-0.35); Eosinophils % (A) 1.1 %; HCT 34.3 % (37.2-46.3); HGB 11.3 g/dL (12.0-15.0); Lymphocytes # (A) 2.43 X 10*3/uL (0.90-5.00); Lymphocytes % (A) 29.9 %; MCH 30.5 pg (27.0-32.0); MCHC 32.9 g/dL (32.0-37.0); MCV 92.7 FL (80.0-97.0); Mean Platelet Volume 9.8 FL (9.5-12.2); Monocytes # (A) 1.15 X 10*3/uL (0.20-1.00); Monocytes % (A) 14.1 %; NRBC Per 100 WBC 0 X 10*3/uL (0.00-0.01); Neutrophils # (A) 4.42 X 10*3/uL (1.80-7.70); Neutrophils % (A) 54.3 %; Platelet Count 219 X 10*3/uL (140-440); RDW 12.9 % (11.5-14.5); WBC 8.14 X 10*3/uL (4.50-10.00)
[2023-08-25 10:23] LABS: BUN/Creat Ratio 10.33 Ratio (12.00-20.00); Blood Urea Nitrogen 9.3 mg/dL (9.0-27.0); Calcium 8.5 mg/dL (8.7-10.3); Carbon Dioxide 24.5 mmol/L (21.6-31.8); Chloride 110 mmol/L (96-109); Glucose 92 mg/dL (70-110); Potassium 4.2 mmol/L (3.5-5.5); Sodium 143 mmol/L (135-145)
--- NOTE | 2023-08-25 14:13 | P.CRDCN ---
History of Present Illness Consult date: 08/25/23 Consult reason: chest pain History of present illness: This is Horacio Lunsford NP, I'm dictating on behalf of Dr. Patterson's H&P and A&P The patient was interviewed and examined. HPI: Patient is a pleasant 52-year-old female with a past medical history that includes hypertension, hypothyroidism, GERD, depression, and anxiety who presents to the emergency department with a complaint of chest pain. Patient reports awakening early this morning with the sensation of chest pain. She reports there was no obvious exacerbation or alleviating factors of the pain except for it increasing on inspiration. Patient presented to the hospital with these concerns. Patient does note that she has cervical spine nerve issues and is supposed to undergo surgery to help repair this as she has some significant pain in her neck. In the emergency department the patient had an EKG done which was negative for any obvious changes. Troponins have been negative, D-dimer was also negative. She was admitted for further evaluation by cardiology. This morning the patient reports that she is feeling much better, and states that her chest pain has resolved at this time. The pain did improve with morphine in the emergency department. Patient reports she does have a history of hypertension but states she does not take any medications at this time due to it resolving on its own and being weaned off the medications. Patient does report bilateral lower extremity swelling, but states she has been told she has lymphedema. ROS: [No fever, chills, or rigors] [no cough, phlegm, or expectoration] [no nausea, vomiting, or diarrhea] [no hematuria, dysuria] [no musculoskelatal complaints] [no strokes or seizures] [no skin lesions] EXAMINATION: GENERAL: Well-appearing, well-nourished and in no acute distress. NECK: Supple without JVD or thyromegaly. LUNGS: Breath sounds clear to auscultation bilaterally. Respiration equal and unlabored. No wheezes, rales or rhonchi. HEART: Regular rate and rhythm without murmurs, rubs or gallops. S1 and S2 heard. EXTREMITIES: Normal range of motion, no edema. No clubbing or cyanosis. Peripheral pulses intact and strong. REVIEW OF LABS, ECG & MEDICAL DATA: LABS: White count 8.1, hemoglobin 11.3, platelets 219, D-dimer 0.29, sodium 143, potassium 4.2, BUN 9.3, creatinine 0.9, hemoglobin A1c 5.4, calcium 8.5, magnesium 2.1, troponin x 3-less than 0.012, BNP 66 EKG: Normal sinus rhythm IMAGING: Chest x-ray dated 08/24/2023 shows no acute process. VITALS: Temp 98.1, pulse 71, respirations 16, blood pressure 130/66, O2 saturation 97% on room air IMPRESSION: 1. Chest pain 2. Hypertension 3. Lymphedema PLAN: Check hemoglobin A1c and lipid panel. Schedule patient for dobutamine stress echo on Sunday. Continue to monitor blood pressure and telemetry. Patient may eat. Encourage patient to walk. Please note if patient reports any further symptoms. Further recommendations based on patient's clinical course. Thank you for the consult and allowing us to participate in the care of this patient. Past Medical History Past Medical History: Chest Pain / Angina, GERD/Reflux, Hypertension, Sleep Apnea/CPAP/BIPAP, Thyroid Disorder Additional Past Medical History / Comment(s): No CPAP use yet. Hypothyroid. History of Any Multi-Drug Resistant Organisms: None Reported Past Surgical History: Appendectomy, Cholecystectomy Additional Past Surgical History / Comment(s): Left achilles tendon repair. Past Anesthesia/Blood Transfusion Reactions: No Reported Reaction Past Psychological History: Anxiety, Depression, PTSD Smoking Status: Never smoker Past Alcohol Use History: None Reported Past Drug Use History: None Reported - Past Family History Mother Family Medical History: Cancer, Osteoarthritis (OA), Rheumatoid Arthritis (RA) Additional Family Medical History / Comment(s): Breast Cancer. Brother(s) Family Medical History: Cancer Additional Family Medical History / Comment(s): Prostate Cancer. Medications and Allergies Home Medications Medication Instructions Recorded Confirmed Type Escitalopram [Lexapro] 10 mg PO HS 09/01/20 08/24/23 History Levothyroxine Sodium [Synthroid] 75 mcg PO DAILY 09/01/20 08/24/23 History Omeprazole 20 mg PO DAILY PRN 09/01/20 08/24/23 History Ibuprofen [Motrin] 800 mg PO Q8H PRN 08/24/23 08/24/23 History Multivitamins, Thera [Multivitamin 1 tab PO DAILY 08/24/23 08/24/23 History (formulary)] Allergies Allergy/AdvReac Type Severity Reaction Status Date / Time shellfish derived [Shrimp] AdvReac Vomiting Verified 08/24/23 14:36 Physical Exam Vitals: Vital Signs Temp Pulse Pulse Resp BP BP Pulse Ox 08/25/23 07:00 98.1 F 71 16 130/66 97 08/25/23 01:39 98.3 F 78 16 123/70 97 08/24/23 19:04 98.2 F 92 16 145/85 99 08/24/23 17:47 86 16 149/88 98 08/24/23 16:11 80 16 150/82 98 Intake and Output 08/24/23 08/25/23 08/25/23 22:59 06:59 14:59 Intake Total 118 Balance 118 Intake: Oral 118 Other: # Voids 2 1 Weight 99.79 kg Results 08/25/23 05:31 08/25/23 05:31 Cardiac Enzymes 08/24/23 08/24/23 Range/Units 14:41 17:33 Troponin I <0.012 <0.012 (0.000-0.034) ng/mL CBC 08/25/23 Range/Units 05:31 WBC 8.14 (4.50-10.00) X 10*3/uL RBC 3.70 L (4.10-5.20) X 10*6/uL Hgb 11.3 L (12.0-15.0) g/dL Hct 34.3 L (37.2-46.3) % Plt Count 219 (140-440) X 10*3/uL Comprehensive Metabolic Panel 08/25/23 Range/Units 05:31 Sodium 143 (135-145) mmol/L Potassium 4.2 (3.5-5.5) mmol/L Chloride 110 H (96-109) mmol/L Carbon Dioxide 24.5 (21.6-31.8) mmol/L BUN 9.3 (9.0-27.0) mg/dL Creatinine 0.9 (0.6-1.5) mg/dL Glucose 92 (70-110) mg/dL Calcium 8.5 L (8.7-10.3) mg/dL Current Medications Generic Name Dose Route Start Last Admin Trade Name Freq PRN Reason Stop Dose Admin Aspirin 81 mg 08/25/23 09:00 08/25/23 08:43 Aspirin 81 Mg PO 81 mg DAILY HILARY Administration Escitalopram Oxalate 10 mg 08/24/23 21:00 08/24/23 21:04 Escitalopram 10 Mg Tab PO 10 mg HS HILARY Administration Heparin Sodium (Porcine) 5,000 unit 08/24/23 16:00 08/25/23 08:43 Heparin Sodium,Porcine 5,000 Unit/Ml 1 Ml Vial SQ 5,000 unit Q8HR HILARY Administration Dobutamine HCl/Dextrose 500 mg 250 mls @ 29.937 mls/hr 08/27/23 06:00 / IV Solution IV 08/27/23 23:00 .Q8H22M PRN Per Protocol Protocol 10 MCG/KG/MIN Ketorolac Tromethamine 15 mg 08/24/23 13:41 08/24/23 21:48 Ketorolac 15 Mg/Ml 1 Ml Vial IVP 08/27/23 13:42 15 mg Q6HR PRN Administration Moderate Pain (Scale 4 to 6) Levothyroxine Sodium 75 mcg 08/25/23 06:30 08/25/23 06:28 Levothyroxine 75 Mcg Tab PO 75 mcg DAILY@0630 HILARY Administration Morphine Sulfate 4 mg 08/24/23 14:49 Morphine Sulfate 4 Mg/Ml Syringe IV Q6H PRN Severe Pain (Scale 7 to 10) Multivitamins 1 each 08/25/23 09:00 08/25/23 08:43 Multivitamins, Thera 1 Each Tab PO 1 each DAILY HILARY Administration Naloxone HCl 0.2 mg 08/24/23 13:41 Naloxone 0.4 Mg/Ml 1 Ml Vial IV Q2M PRN Opioid Reversal Ondansetron HCl 4 mg 08/24/23 13:41 Ondansetron 4 Mg/2 Ml Vial IVP Q8HR PRN Nausea And Vomiting Pantoprazole Sodium 40 mg 08/25/23 07:30 08/25/23 06:28 Pantoprazole 40 Mg Tablet PO 40 mg [id number] HILARY Administration Intake and Output 08/24/23 08/25/23 08/25/23 22:59 06:59 14:59 Intake Total 118 Balance 118 Intake: Oral 118 Other: # Voids 2 1 Weight 99.79 kg 08/25/23 05:31 08/25/23 05:31
[2023-08-25 14:29] LABS: Chol/HDL Ratio 2.94 Ratio; LDL Cholesterol,Calculated 91.5 mg/dL (0.0-131.0); VLDL Calculation 9.46 mg/dL (5.00-40.00)
--- NOTE | 2023-08-25 15:08 | P.PN ---
Subjective Progress Note Date: 08/25/23 Hospital Course: 52-year-old female with a history of hypertension, hypothyroidism, GERD, depression, and anxiety presenting with chest pain. Vital signs upon arrival showing blood pressure 159/87, heart rate 94, respiratory rate 18, temp 97.6 F, and SpO2 of 99% on room air. EKG completed showing normal sinus rhythm at 86 bpm with no significant T wave or ST abnormalities showing no signs of acute is chemia. Chest x-ray completed and reviewed negative for acute cardiopulmonary process. BMP also normal findings with exception of mild elevated chloride of 108 otherwise normal findings. Blood glucose 94. Liver profile unremarkable. Troponin negative at less than 0.012 and proBNP of 66. Coagulation profile normal finding and D-dimer was negative at 0.29. Lipase normal findings at 59. Patient given aspirin 324 mg p.o. x 1 dose along with morphine 4 mg IVP in the emergency department. Patient admitted under our services with consultation to cardiology. Patient pending stress test. Subjective: Patient seen and examined at bedside. No acute events overnight. Denies any further chest pain. Pertinent positives and negatives as discussed above, a complete review of systems was performed and all other systems are negative. Vitals Signs Reviewed. General: Nontoxic, no distress, appears at stated age Derm: Warm, dry Head: Atraumatic, normocephalic, symmetric Eyes: EOMI, no lid lag, anicteric sclera Mouth: No lip lesion, mucus membranes moist Cardiovascular: S1S2 reg, no murmur Lungs: CTA bilateral, no rhonchi, no rales, no accessory muscle use Abdominal: Soft, nontender to palpation, no guarding, no appreciable organomegaly Ext: No gross muscle atrophy, no edema, no contractures Neuro: CN II-XI grossly intact, no focal neuro deficits Psych: Alert, oriented, appropriate affect Data Reviewed Today: Pertinent Labs: Hemoglobin 11.3, chloride 110, creatinine 0.9, A1c 5.4, troponin negative x 3, LDL 91.5, total cholesterol 153 Imaging: No new imaging Assessment and Plan: Chest pain, ACS ruled out Cervical spinal stenosis, previously known scheduled to undergo cervical spinal surgery at [facility] next month GERD Hypertension Hypothyroidism Anxiety and depression -Cardiology note reviewed, pending stress echo on Sunday -Telemetry monitoring -Cardiac diet -Continue aspirin 81 mg -Continue Lexapro 10, levothyroxine 75, pantoprazole 40 DVT ppx: Subcu heparin Code status: Full code Anticipated discharge place: Home Anticipated discharge time: Likely Sunday Objective - Vital Signs Vital signs: Vital Signs Temp 98.1 F 08/25/23 07:00 Pulse 71 08/25/23 07:00 Resp 16 08/25/23 07:00 BP 130/66 08/25/23 07:00 Pulse Ox 97 08/25/23 07:00 FiO2 Intake & Output 08/24/23 08/25/23 08/25/23 18:59 06:59 18:59 Intake Total 118 Balance 118 Weight 99.79 kg 99.79 kg Intake: Oral 118 Other: # Voids 1 - Labs CBC & Chem 7: 08/25/23 05:31 08/25/23 05:31 Labs: Abnormal Lab Results - Last 24 Hours (Table) 08/25/23 08/25/23 Range/Units 05:31 05:31 RBC 3.70 L (4.10-5.20) X 10*6/uL Hgb 11.3 L (12.0-15.0) g/dL Hct 34.3 L (37.2-46.3) % Monocytes # 1.15 H (0.20-1.00) X 10*3/uL Chloride 110 H (96-109) mmol/L BUN/Creatinine Ratio 10.33 L (12.00-20.00) Ratio Calcium 8.5 L (8.7-10.3) mg/dL
--- NOTE | 2023-08-26 08:17 | P.PN ---
Subjective Progress Note Date: 08/26/23 This is Horacio Lunsford NP, I'm dictating on behalf of Dr. Patterson's H&P and A&P. Patient was interviewed and examined. Patient is a pleasant 52-year-old female who presented to the hospital with chest pain. Patient reports no incidence of chest pain overnight. She states that she has been tolerating a diet just fine. Patient has been walking around in the hallways with no incidence of chest pain. Patient is scheduled for a dobutamine stress echo tomorrow. GENERAL: Well-appearing, well-nourished and in no acute distress. NECK: Supple without JVD or thyromegaly. LUNGS: Breath sounds clear to auscultation bilaterally. Respiration equal and unlabored. No wheezes, rales or rhonchi. HEART: Regular rate and rhythm without murmurs, rubs or gallops. S1 and S2 heard. EXTREMITIES: Normal range of motion, no edema. No clubbing or cyanosis. Peripheral pulses intact and strong. VITALS: Temp 98.0, pulse 65, respirations 16, blood pressure 134/70, O2 saturation 96% on room air TELEMETRY: Normal sinus rhythm LABS: White count 8.1, hemoglobin 11.3, platelets 219, sodium 143, potassium 4.2, BUN 9.3, creatinine 0.9, hemoglobin A1c 5.4, calcium 8.5, triglycerides 47.3, cholesterol 153, LDL 91.5, HDL 52 IMPRESSION: 1. Chest pain 2. Hypertension 3. Lymphedema PLAN: Continue current treatment plan. Dobutamine stress echo tomorrow. N.p.o. at midnight. Objective - Vital Signs Vital signs: Vital Signs Temp 98.0 F 08/26/23 07:00 Pulse 65 08/26/23 07:00 Resp 16 08/26/23 07:00 BP 134/77 08/26/23 07:00 Pulse Ox 96 08/26/23 07:00 FiO2 Intake & Output 08/25/23 08/26/23 08/26/23 18:59 06:59 18:59 Intake Total 236 Balance 236 Intake: Oral 236 Other: # Voids 3 1 - Labs CBC & Chem 7: 08/25/23 05:31 08/25/23 05:31 Labs: Abnormal Lab Results - Last 24 Hours (Table) 08/25/23 08/25/23 Range/Units 05:31 05:31 RBC 3.70 L (4.10-5.20) X 10*6/uL Hgb 11.3 L (12.0-15.0) g/dL Hct 34.3 L (37.2-46.3) % Monocytes # 1.15 H (0.20-1.00) X 10*3/uL Chloride 110 H (96-109) mmol/L BUN/Creatinine Ratio 10.33 L (12.00-20.00) Ratio Calcium 8.5 L (8.7-10.3) mg/dL
[2023-08-26] MEDS: BENZONATATE 100 MG CAP PO PRN (10:33)
--- NOTE | 2023-08-26 15:29 | P.PN ---
Subjective Progress Note Date: 08/26/23 Hospital Course: 52-year-old female with a history of hypertension, hypothyroidism, GERD, depression, and anxiety presenting with chest pain. Vital signs upon arrival showing blood pressure 159/87, heart rate 94, respiratory rate 18, temp 97.6 F, and SpO2 of 99% on room air. EKG completed showing normal sinus rhythm at 86 bpm with no significant T wave or ST abnormalities showing no signs of acute is chemia. Chest x-ray completed and reviewed negative for acute cardiopulmonary process. BMP also normal findings with exception of mild elevated chloride of 108 otherwise normal findings. Blood glucose 94. Liver profile unremarkable. Troponin negative at less than 0.012 and proBNP of 66. Coagulation profile normal finding and D-dimer was negative at 0.29. Lipase normal findings at 59. Patient given aspirin 324 mg p.o. x 1 dose along with morphine 4 mg IVP in the emergency department. Patient admitted under our services with consultation to cardiology. Patient pending stress test tomorrow. Subjective: Patient seen and examined at bedside. No acute events overnight. Denies any f urther chest pain. Pertinent positives and negatives as discussed above, a complete review of syste ms was performed and all other systems are negative. Vitals Signs Reviewed. General: Nontoxic, no distress, appears at stated age Derm: Warm, dry Head: Atraumatic, normocephalic, symmetric Eyes: EOMI, no lid lag, anicteric sclera Mouth: No lip lesion, mucus membranes moist Cardiovascular: S1S2 reg, no murmur Lungs: CTA bilateral, no rhonchi, no rales, no accessory muscle use Abdominal: Soft, nontender to palpation, no guarding, no appreciable organomegaly Ext: No gross muscle atrophy, no edema, no contractures Neuro: CN II-XI grossly intact, no focal neuro deficits Psych: Alert, oriented, appropriate affect Data Reviewed Today: Pertinent Labs: No new labs Imaging: No new imaging Assessment and Plan: Chest pain, ACS ruled out Cervical spinal stenosis, previously known scheduled to undergo cervical spinal surgery at [facility] next month GERD Hypertension Hypothyroidism Anxiety and depression -Cardiology note reviewed, pending stress echo on Sunday -Telemetry monitoring -Cardiac diet -Continue aspirin 81 mg -Continue Lexapro 10, levothyroxine 75, pantoprazole 40 DVT ppx: Subcu heparin Code status: Full code Anticipated discharge place: Home Anticipated discharge time: Likely Sunday Objective - Vital Signs Vital signs: Vital Signs Temp 97.9 F 08/26/23 15:00 Pulse 66 08/26/23 15:00 Resp 16 08/26/23 15:00 BP 152/75 08/26/23 15:00 Pulse Ox 99 08/26/23 15:00 FiO2 Intake & Output 08/25/23 08/26/23 08/26/23 18:59 06:59 18:59 Intake Total 236 40 Balance 236 40 Intake: Oral 236 40 Other: # Voids 3 1 - Labs CBC & Chem 7: 08/25/23 05:31 08/25/23 05:31
[2023-08-26] MEDS: MELATONIN 3 MG TABLET PO SCH (20:21)
[2023-08-27 05:20] VITALS: RESP 16; TEMP 98
[2023-08-27] MEDS ORDERED: DOBUTamine DRIP for NUC MED 500 MG in DEXTROSE/WATER 1 250ML.BAG IV PRN (06:00)
[2023-08-27 08:59] VITALS: BP 113/68; PULSE 62
[2023-08-27] MEDS ORDERED: DOBUTamine DRIP for NUC MED 500 MG/250 ML BAG IV ONE (10:40)
--- NOTE | 2023-08-27 10:51 | P.PN ---
Subjective HISTORY OF PRESENT ILLNESS: This is a 52-year-old female who presented to the hospital with a chief complaint of chest pain. Patient examined this morning at the bedside. Patient denies any further episodes of chest pain or pressure. She denies any shortness of breath. Vital signs are stable. PHYSICAL EXAM: VITAL SIGNS: Reviewed. GENERAL: Well-developed in no acute distress. NECK: Supple. No JVD or thyromegaly LUNGS: Respirations even and unlabored. Lungs essentially clear to auscultation bilaterally. HEART: Regular rate and rhythm. S1 and S2 heard. EXTREMITIES: Normal range of motion. No clubbing or cyanosis. Peripheral pulses intact. No lower extremity edema ASSESSMENT: Chest pain, troponin negative x 3 Hypertension History of lymphedema Cervical spinal stenosis Hypothyroidism Anxiety Depression PLAN: Continue current cardiac medications Continue telemetry monitoring. Continue to monitor blood pressure. Patient to undergo dobutamine stress echocardiogram today. If negative she may be discharged home from a cardiac standpoint Nurse practitioner note has been reviewed by physician. Signing provider agrees with the documented findings, assessment, and plan of care documented by DOPE MAINTENANCE WORKER as a scribe. Objective - Vital Signs Vital signs: Vital Signs Temp 98.0 F 08/27/23 07:00 Pulse 62 08/27/23 07:00 Resp 16 08/27/23 07:00 BP 113/68 08/27/23 07:00 Pulse Ox 96 08/27/23 07:00 FiO2 Intake & Output 08/26/23 08/27/23 08/27/23 18:59 06:59 18:59 Intake Total 158 Balance 158 Intake: Oral 158 Other: # Voids 4 1 # Bowel Movements 1 - Labs CBC & Chem 7: 08/25/23 05:31 08/25/23 05:31
--- NOTE | 2023-08-27 11:48 | CA ---
Dobutamine Stress Echocardiogram Report Zuleika Dotson Age: 52 Gender: F : 1970 Exam Date: 08/27/2023 10:14 Exam Location: [facility] Ordering Physician: Horacio Lunsford [facility] Referring Physician: ISAIAS, Nanoelectronics Engineer: Ale Stone RDCS Technologist: Ht (in): 68 Wt (lb): 210 Procedure CPT: Indication: Chest Pain ICD-9 Codes: Rhythm: Patient History: Chest pain and palpitations Cardiac Medications: Medications in past 24 hours: Contrast: Definity Total Dose (mL): 3 Stress Results Protocol: Dobutamine Peak Dose (???g/kg/min): 40 Duration (min:sec): Atropine:(mg) Target HR: 142 Double Product: [id number] Resting HR: 61 Resting BP: 150 / 77 Peak HR: 140 Peak BP: 179 / 49 Max Predicted HR: 167 84 % Max Predicted HR Stress Summary: BP Response: Reason for Termination: DIRECTED PER DENTAL APPLIANCE REPAIRER Cardiac Symptoms: NAUSEA,VOMITING,FLUSHED ECG Analysis Resting EKG: Normal sinus rhythm normal axis normal intervals Stress EKG: Patient was given intravenous dobutamine or a period of 13 minutes as per protocol achieving 84% of predicted maximal heart rate without chest pain or diagnostic ST segment depression Arrhythmia: Occasional PVCs noted Echo Analysis Base Echo Analysis: Normal left ventricular size wall motion systolic function Low Echo Anaylsis: Normal hyperdynamic response Peak Echo Analysis: Normal hyperdynamic response Recovery Echo: Normal MEASUREMENTS (Male/Female) Normal Values CONCLUSIONS Negative stress test by EKG criteria Negative dobutamine stress echo Dr. Gerry Rivera MD (Electronically Signed) Final Date: 27 August 2023 11:47
--- NOTE | 2023-08-27 13:16 | P.DS ---
Providers Date of admission: 08/24/23 13:41 Expected date of discharge: 08/27/23 Attending physician: Becca Genao DO Consults: 08/24/23 13:41 Consult Physician Routine Consulting Provider: [facility] Consult Reason/Comments: chest pain Do you want consulting provider notified?: Yes [facility] Course: Discharge Diagnosis: Chest pain, ACS ruled out Cervical spinal stenosis, previously known scheduled to undergo cervical spinal surgery at [facility] next month GERD Hypertension Hypothyroidism Anxiety and depression Hospital Course: Patient is a very pleasant 52-year-old female with a history of hypertension, hypothyroidism, GERD, depression, and anxiety presenting with chest pain. Vital signs upon arrival showing blood pressure 159/87, heart rate 94, respiratory rate 18, temp 97.6 F, and SpO2 of 99% on room air. EKG completed showing normal sinus rhythm at 86 bpm with no significant T wave or ST abnormalities showing no signs of acute ischemia. Chest x-ray completed and reviewed negative for acute cardiopulmonary process. BMP also normal findings with exception of mild elevated chloride of 108 otherwise normal findings. Blood glucose 94. Liver profile unremarkable. Troponin negative at less than 0.012 and proBNP of 66. Coagulation profile normal finding and D-dimer was negative at 0.29. Lipase normal findings at 59. Patient given aspirin 324 mg p.o. x 1 dose along with morphine 4 mg IVP in the emergency department. Patient admitted under our services with consultation to cardiology. Troponins were trended and all negative at less than 0.012 x 3 draws. Lipid profile unremarkable. Hemoglobin A1c 5.4%. Dobutamine stress test completed and report stating negative stress test by EKG criteria and negative dobutamine stress echo. Patient cleared from cardiology perspective for discharge. Patient is medically stable for discharge at this time, recommend following up with her PCP in 1 to 2 days and with orthospine surgery team as scheduled for planned cervical fusion. No medication changes were made during this hospitalization. Physical Exam: Vitals Signs Reviewed. General: Nontoxic, no distress, appears at stated age Derm: Warm, dry Head: Atraumatic, normocephalic, symmetric Eyes: EOMI, no lid lag, anicteric sclera Mouth: No lip lesion, mucus membranes moist Cardiovascular: S1S2 reg, no murmur Lungs: CTA bilateral, no rhonchi, no rales, no accessory muscle use Abdominal: Soft, nontender to palpation, no guarding, no appreciable organomegaly Ext: No gross muscle atrophy, no edema, no contractures Neuro: CN II-XI grossly intact, no focal neuro deficits Psych: Alert, oriented, appropriate affect A total of 32 minutes of time were spent preparing this complex discharge summary. Pt was discharged on 08/27/2023 at 1:17 PM Patient was seen independently by Nurse Practitioner. This document was prepared using girnar[employer] dictation software. Please allow for errors in elderly caregiver while rare they do occur. I reviewed the documentation as provided by the RONY above, who is the original author of this note. I agree with the documented assessment and plan, with the following changes: none Patient Condition at Discharge: Stable Plan - Discharge Summary New Discharge Prescriptions: Continue Escitalopram [Lexapro] 10 mg PO HS Omeprazole 20 mg PO DAILY PRN PRN Reason: GERD Levothyroxine Sodium [Synthroid] 75 mcg PO DAILY Ibuprofen [Motrin] 800 mg PO Q8H PRN PRN Reason: Pain Multivitamins, Thera [Multivitamin (formulary)] 1 tab PO DAILY Discharge Medication List Escitalopram [Lexapro] 10 mg PO HS 09/01/20 [History] Levothyroxine Sodium [Synthroid] 75 mcg PO DAILY 09/01/20 [History] Omeprazole 20 mg PO DAILY PRN 09/01/20 [History] Ibuprofen [Motrin] 800 mg PO Q8H PRN 08/24/23 [History] Multivitamins, Thera [Multivitamin (formulary)] 1 tab PO DAILY 08/24/23 [History] Follow up Appointment(s)/Referral(s): Bro Patterson MD [STAFF PHYSICIAN] - 1 Week Ant Ly DO [Primary Care Provider] - 1-2 days Patient Instructions/Handouts: Chest Pain (DC) Activity/Diet/Wound Care/Special Instructions: Activity: As tolerated. Take breaks as needed. Diet: Heart healthy and carb consistent diet. Avoid salts, or foods with hidden salts such as canned or boxed foods and frozen dinners. Extra salt makes your heart work harder and traps the fluid in your body for longer. Special Instructions: Take all of your medications as directed and remember to keep all of your doctor's appointments and follow-up as needed. Thank you for allowing us to participate in your care, it was truly a pleasure having you for our patient!!! Discharge Disposition: HOME SELF-CARE
== END 2023-08-27 15:00 | disposition home or self-care (01) ==
LOC: EC 12:00 → 6NMEDSUR 13:41
PROVIDERS: ADMIT Internal Medicine; ATTEND Internal Medicine
DX: R07.89 Other chest pain (principal); K21.9 Gastro-esophageal reflux disease without esophagitis; G47.30 Sleep apnea, unspecified; E03.9 Hypothyroidism, unspecified; F32.A Depression, unspecified; F41.9 Anxiety disorder, unspecified; I10 Essential (primary) hypertension; I89.0 Lymphedema, not elsewhere classified; M48.02 Spinal stenosis, cervical region; Z79.82 Long term (current) use of aspirin; Z79.890 Hormone replacement therapy; Z79.899 Other long term (current) drug therapy
CPT/HCPCS: 96376; 96372 ×5; 96361; 96374; 96375; 99285; 36415; 93005; 93351; 85379; 83880; 80061; 80053; 80048; 83690; 83735; 84484; 85025 ×2; 85610; 85730; 83036; 71046; G0378 ×4; J1250; J2270; J1644 ×3; J2360; Q9957; J1885

== ENCOUNTER 2023-09-07 20:51 | Emergency (ER) | payer OTHER ==
[2023-09-07 21:11] VITALS: TEMP 98
--- NOTE | 2023-09-07 21:32 | ED ---
Allergic Reaction HPI - General Chief complaint: Allergic Reaction Stated complaint: allergic reaction Time Seen by Provider: 09/07/23 20:58 Source: patient Mode of arrival: ambulatory Limitations: no limitations - History of Present Illness Initial Comments: 52-year-old female presenting with a chief complaint of facial redness. Patient reports yesterday, had a discectomy and fusion of C4-[address] Aldridge at [facility]. States that she was discharged this afternoon. Patient states today, noticed that she started to develop redness of her face. Reports that she was given IV steroids while at the hospital and notes that this is the only new medication that she was given. States that when she got home around 5 PM today took medications prescribed to her which were methocarbamol, oxycodone, and Colace. Reports no significant change after taking these medications however states she feels as if the redness of her face has gotten worse. Also notes some swelling of her face as well. Patient is not on any antihypertensives. - Related Data Home Medications Medication Instructions Recorded Confirmed Escitalopram [Lexapro] 10 mg PO HS 09/01/20 08/24/23 Levothyroxine Sodium [Synthroid] 75 mcg PO DAILY 09/01/20 08/24/23 Omeprazole 20 mg PO DAILY PRN 09/01/20 08/24/23 Ibuprofen [Motrin] 800 mg PO Q8H PRN 08/24/23 08/24/23 Multivitamins, Thera [Multivitamin 1 tab PO DAILY 08/24/23 08/24/23 (formulary)] Allergies Allergy/AdvReac Type Severity Reaction Status Date / Time shellfish derived [Shrimp] AdvReac Vomiting Verified 08/24/23 14:36 Review of Systems ROS Statement: Those systems with pertinent positive or pertinent negative responses have been documented in the HPI. ROS Other: All systems not noted in ROS Statement are negative. Past Medical History Past Medical History: Chest Pain / Angina, GERD/Reflux, Hypertension, Sleep Apnea/CPAP/BIPAP, Thyroid Disorder Additional Past Medical History / Comment(s): No CPAP use yet. Hypothyroid. History of Any Multi-Drug Resistant Organisms: None Reported Past Surgical History: Appendectomy, Cholecystectomy Additional Past Surgical History / Comment(s): Left achilles tendon repair. Past Anesthesia/Blood Transfusion Reactions: No Reported Reaction Past Psychological History: Anxiety, Depression, PTSD Smoking Status: Never smoker Past Alcohol Use History: None Reported Past Drug Use History: None Reported - Past Family History Mother Family Medical History: Cancer, Osteoarthritis (OA), Rheumatoid Arthritis (RA) Additional Family Medical History / Comment(s): Breast Cancer. Brother(s) Family Medical History: Cancer Additional Family Medical History / Comment(s): Prostate Cancer. General Exam Limitations: no limitations General appearance: alert, in no apparent distress Eye exam: Present: normal appearance ENT exam: Present: other (Erythema of the face. No significant oropharyngeal swelling. No significant facial swelling. Tolerating secretions.) Respiratory exam: Present: normal lung sounds bilaterally, other (No stridor) Cardiovascular Exam: Present: regular rate, normal rhythm GI/Abdominal exam: Present: soft Neurological exam: Present: alert, oriented X3 Skin exam: Present: warm, dry Course Vital Signs 09/07/23 20:56 Temperature 98.0 F Pulse Rate 69 Respiratory 18 Rate Blood Pressure 184/77 O2 Sat by Pulse 99 Oximetry Medical Decision Making - Medical Decision Making Was pt. sent in by a medical professional or institution (, PA, RADIOLOGICAL TECHNOLOGIST, urgent care, hospital, or prison...) When possible be specific @ -No Did you speak to anyone other than the patient for history (EMS, parent, family, police, friend...)? What history was obtained from this source @ -No Did you review nursing and triage notes (agree or disagree)? Why? @ -I reviewed and agree with nursing and triage notes Were old charts reviewed (outside hosp., previous admission, EMS record, old EKG, old radiological studies, urgent care reports/EKG's, prison records)? Report findings @ -Reviewed patient instructions from Son Wallace showing patient had a discectomy and fusion of C4-[address] Aldridge yesterday. Differential Diagnosis (chest pain, altered mental status, abdominal pain women, abdominal pain men, vaginal bleeding, weakness, fever, dyspnea, syncope, headache, dizziness, GI bleed, back pain, seizure, CVA, palpatations, mental health, musculoskeletal)? @ -Anaphylaxis, facial cellulitis. This not meant to be an all-inclusive list. EKG interpreted by me (3pts min.). @ -As above X-rays interpreted by me (1pt min.). @ -None done CT interpreted by me (1pt min.). @ -None done U/S interpreted by me (1pt. min.). @ -None done What testing was considered but not performed or refused? (CT, X-rays, U/S, labs)? Why? @ -None What meds were considered but not given or refused? Why? @ -Patient was to be given IV medications however after 2 unsuccessful IV attempts patient would no longer like to attempt any more IVs. Order was placed for IM Benadryl and p.o. Pepcid Did you discuss the management of the patient with other professionals (professionals i.e. , PA, RADIOLOGICAL TECHNOLOGIST, lab, RT, psych nurse, geriatric social worker, household appliances salesperson, teacher, structural engineering drafting officer, disease case manager rn)? Give summary @ -No Was smoking cessation discussed for >3mins.? @ -No Was critical care preformed (if so, how long)? @ -No Were there social determinants of health that impacted care today? How? (Homelessness, low income, unemployed, alcoholism, drug addiction, transportation, low edu. Level, literacy, decrease access to med. care, [facility], rehab)? @ -No Was there de-escalation of care discussed even if they declined (Discuss DNR or withdrawal of care, Hospice)? DNR status @ -No What co-morbidities impacted this encounter? (DM, HTN, Smoking, COPD, CAD, Cancer, CVA, ARF, Chemo, Hep., AIDS, mental health diagnosis, sleep apnea, morbid obesity)? @ -None Was patient admitted / discharged? Hospital course, mention meds given and route, prescriptions, significant lab abnormalities, going to OR and other pertinent info. @ -Discharge 52-year-old female presents to the ED with complaints of facial redness. Reports she received IV steroids during her hospital stay. Notes no other medications. No significant change with the prescribed medications. IV steroids were held as this was possibly a precipitating factor in causing the facial redness/swelling. On exam there is no significant oropharyngeal swelling or facial swelling. She is tolerating secretions well. No stridor. Patient was provided IM Benadryl and p.o. Pepcid here in the ED. Discharged home in stable condition. Discussed monitoring her symptoms closely especially with taking her new medications. Discussed strict return precautions with patient who verbalized agreement. Undiagnosed new problem with uncertain prognosis? @ -No Drug Therapy requiring intensive monitoring for toxicity (Heparin, Nitro, Insulin, Cardizem)? @ -No Were any procedures done? @ -No Diagnosis/symptom? @ -Facial redness Acute, or Chronic, or Acute on Chronic? @ -Acute Uncomplicated (without systemic symptoms) or Complicated (systemic symptoms)? @ -Uncomplicated Side effects of treatment? @ -No Exacerbation, Progression, or Severe Exacerbation? @ -No Poses a threat to life or bodily function? How? (Chest pain, USA, AR, pneumonia, PE, COPD, DKA, ARF, appy, cholecystitis, CVA, Diverticulitis, Homicidal, Suicidal, threat to staff... and all critical care pts) @ -No Disposition Clinical Impression: Medication reaction Disposition: HOME SELF-CARE Condition: Good Additional Instructions: Please return to the Emergency Department if symptoms worsen or any other concerns. Please follow-up with your PCP. Please monitor your symptoms closely. Is patient prescribed a controlled substance at d/c from ED?: No Referrals: Ant Ly DO [Primary Care Provider] - 1-2 days Time of Disposition: 22:25
[2023-09-07] MEDS: diphenhydrAMINE 50 MG/ML 1 ML VIAL IVP STA (22:11)
[2023-09-07] MEDS: FAMOTIDINE 20 MG/2 ML VIAL IV STA (22:11)
[2023-09-07] MEDS: FAMOTIDINE 20 MG TAB PO STA (22:19)
[2023-09-07] MEDS: diphenhydrAMINE 50 MG/ML 1 ML VIAL IM STA (22:20)
[2023-09-07 23:17] VITALS: BP 180/84; PULSE 70; RESP 20
== END 2023-09-07 22:33 | disposition home or self-care (01) ==
LOC: EC 20:51
DX: R22.0 Localized swelling, mass and lump, head (principal); L53.9 Erythematous condition, unspecified; T50.995A Adverse effect of other drugs, medicaments and biological substances, initial encounter; I10 Essential (primary) hypertension; K21.9 Gastro-esophageal reflux disease without esophagitis; E07.9 Disorder of thyroid, unspecified; F32.A Depression, unspecified; F41.9 Anxiety disorder, unspecified; Z79.890 Hormone replacement therapy; Z79.899 Other long term (current) drug therapy; Z91.013 Allergy to seafood
CPT/HCPCS: 99283; 96372; J1200

== ENCOUNTER → 2023-11-20 | Outpatient (CLI) | payer OTHER ==
--- NOTE | 2023-11-20 12:11 | XR ---
EXAMINATION TYPE: XR shoulder complete BILAT DATE OF EXAM: 11/20/2023 11:31 AM CLINICAL INDICATION:Female, 53 years old with history of [id number] RT SHLD PAIN,LT SHLD PAIN; [facility] COMPARISON: 10/05/2020 TECHNIQUE: XR shoulder complete BILAT; examined in AP, internally rotated and scapular Y projections. FINDINGS: No evidence of acute osseous pathology, joint dislocation, or soft tissue swelling. The remaining po rtions of the visualized chest are unremarkable. Mild degeneration changes of the acromion, distal c lavicle with osteophyte formation. There is osteophyte formation of the glenoid and humeral head. The re is joint space narrowing of glenohumeral joint bilaterally. Fixation changes lower cervical spine. IMPRESSION: 1. No acute osseous pathology. 2. Mild shoulder osteoarthrosis.
== END | disposition home or self-care (01) ==
LOC: RADXRYALE 11:15
PROVIDERS: ATTEND Family Medicine
DX: M19.011 Primary osteoarthritis, right shoulder (principal); M19.012 Primary osteoarthritis, left shoulder

== ENCOUNTER → 2023-12-06 | Outpatient (CLI) | payer OTHER ==
--- NOTE | 2023-12-06 23:34 | MR ---
EXAMINATION TYPE: MR shoulder LT wo con DATE OF EXAM: 12/06/2023 COMPARISON: Bilateral shoulder x-rays November 20, 2023 HISTORY: Contracture, left shoulder. Left shoulder pain since September 06 TECHNIQUE: Multiplanar, multisequence imaging of the left shoulder is performed without contrast. FINDINGS: Rotator Cuff: Intact supraspinatus and infraspinatus tendons. Intact subscapularis tendon. Rotator cu ff muscle bulk preserved. Acromioclavicular Joint: Mild capsular hypertrophy. Mild narrowing and spurring. Glenohumeral Joint: Moderate sized joint effusion. No significant spurring. Narrowing is present. Labrum: The labrum appears grossly intact given limitation of non-arthrogram study. Biceps Tendon: The long head of biceps is in normal location within bicipital groove. Bone marrow signal: Tiny subchondral cystic change superior lateral humeral head. Other: No additional significant abnormality is appreciated. IMPRESSION: No rotator cuff or labral tear is seen. Moderate-sized glenohumeral joint effusion.
== END | disposition home or self-care (01) ==
LOC: RADMRIMAIN 16:34
PROVIDERS: ATTEND Family Medicine
DX: M25.412 Effusion, left shoulder (principal)

== ENCOUNTER → 2024-05-01 | Outpatient (CLI) | payer OTHER ==
--- NOTE | 2024-05-01 12:14 | XR ---
EXAMINATION TYPE: XR toes RT DATE OF EXAM: 05/01/2024 12:04 PM COMPARISON: 03/14/2021 CLINICAL INDICATION: Female, 53 years old with history of [id number] RT TOE PAIN; [facility] TECHNIQUE: XR toes RT examined in the AP, oblique, and lateral projections. FINDINGS: The There is a fracture of the dorsal aspect of the first digit proximal phalanx with intra-articular ext ension. No additional fractures visualized.. Multifocal degeneration changes throughout the joints of the foot with osteophyte formation and joint space narrowing. IMPRESSION: 1. Fracture through the base of the first digit on the posterior aspect seen on lateral view. 2. Mild degeneration changes throughout the joints of the foot. [facility], , 05/01/2024 12:12 PM
== END | disposition home or self-care (01) ==
LOC: RADXRYALE 11:51
PROVIDERS: ATTEND Physician Assistant
DX: S92.511A Displaced fracture of proximal phalanx of right lesser toe(s), initial encounter for closed fracture (principal)

== ENCOUNTER → 2024-06-27 | Outpatient (CLI) | payer OTHER ==
--- NOTE | 2024-06-27 17:24 | MR ---
EXAMINATION TYPE: MR brain wo/w con DATE OF EXAM: 06/27/2024 4:53 PM COMPARISON: 07/25/2019, 08/11/2015. 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 1,E03.9; PHH, Arteriovenous malformation, Re-check prior cysts, Bilat hearing loss TECHNIQUE: Multi planar, multi sequence imaging was performed through the brain including: T1, T2, In version recovery, susceptibility weighted imaging and gradient echo imaging and Diffusion weighted im aging. The patient was then given intravenous contrast and multi planar, T1 fat-saturation images wer e obtained. IV Contrast: 9 mL Gadobutrol FINDINGS: Stable high T2 low T1 signal cystic lesions in the right frontal lobe near the fritz-white matter junc tion. No abnormal postcontrast enhancement. The fritz-white junctions, ventricular system, basal cisterns appear unremarkable. Diffusion-weighted imaging shows no evidence of restricted diffusion to suggest acute/subacute infarct. Intracranial ar terial flow voids are maintained. Midline structures show no abnormality. Scattered foci of high T2 s ignal intensity are seen within the periventricular white matter. The susceptibility weighted images do not reveal any evidence for micro-hemorrhage. After administration of gadolinium, no abnormal enha ncement is seen. The bone marrow signal is within normal limits. Paranasal sinuses and mastoid air cells: No significant paranasal sinus disease. The temporal bones and inner ears are grossly unremarkable. Visualized orbits: Orbital contents are intact. IMPRESSION: 1. Stable nonspecific cystic lesions in the right frontal lobe medially. 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 These can sometimes be associated with seizures. 2. No arteriovenous malformation definitively visualized. 3. No evidence of additional intra-axial mass, acute/subacute infarct, or abnormal enhancement. 4. Minimal Nonspecific white matter changes, likely related to small vessel ischemic disease. [facility], , 06/27/2024 5:22 PM
== END | disposition home or self-care (01) ==
LOC: RADMRIMAIN 15:53
PROVIDERS: ATTEND Family Medicine
DX: M62.81 Muscle weakness (generalized) (principal); G89.29 Other chronic pain; F33.1 Major depressive disorder, recurrent, moderate; E03.9 Hypothyroidism, unspecified; Q27.39 Arteriovenous malformation, other site; R90.82 White matter disease, unspecified; R56.9 Unspecified convulsions
CPT/HCPCS: 70553; A9585

== ENCOUNTER → 2024-09-30 | Outpatient (CLI) | payer OTHER ==
--- NOTE | 2024-10-01 07:34 | MM ---
Reason for Exam: Screening (asymptomatic). Last mammogram was performed 1 year(s) and 8 month(s) ago. Patient History: Menarche at age 14. First Full-Term at age 21. Postmenopausal. Patient used Hormonal Contraceptives for 5 years. 12/08/1997, Benign Excisional Biopsy on the right side. Maternal aunt had breast cancer at or over age 50. Cousin had breast cancer at or over age 50. Mother had breast cancer, age 60. Risk Values: Sydney 5 year model risk: 2.3%. NCI Lifetime model risk: 16.5%. Prior Study Comparison: 01/29/2019 Bilateral Screening Mammogram, [facility]. 12/19/2021 Bilateral MG screening mammo w CAD, [facility]. 02/27/2023 Bilateral MG screening mammo w CAD, [facility]. Tissue Density: There are scattered areas of fibroglandular density. Findings: Analyzed By CAD. There is no suspicious group of microcalcifications or new suspicious mass in either breast. Overall Assessment: Benign, BI-RAD 2 Management: Screening Mammogram of both breasts in 1 year. . Patient should continue monthly self-breast exams. A clinical breast exam by your physician is recommended on an annual basis. This exam should not preclude additional follow-up of suspicious palpable abnormalities. Note on Sydney scores and lifetime risk: 1. A Sydney score greater than 3% is considered moderate risk. If this is the case, consider specialist referral to assess eligibility for a risk reducing agent. 2. If overall lifetime risk for the development of breast cancer is 20% or higher, the patient may qualify for future screening with alternating mammogram and breast MRI. [facility], , 10/01/2024 7:31 AM. Electronically signed and approved by: Juan C Granda M.D. Radiologis
== END | disposition home or self-care (01) ==
LOC: RADMAMWWP 16:40
PROVIDERS: ATTEND Family Medicine
DX: Z12.31 Encounter for screening mammogram for malignant neoplasm of breast (principal); R92.323 Mammographic fibroglandular density, bilateral breasts; Z78.0 Asymptomatic menopausal state; Z80.3 Family history of malignant neoplasm of breast; Z92.0 Personal history of contraception
CPT/HCPCS: 77067

== ENCOUNTER → 2025-01-15 | Outpatient (CLI) | payer OTHER ==
--- NOTE | 2025-01-15 16:22 | US ---
EXAMINATION TYPE: US thyroid st tissue head/neck DATE OF EXAM: 01/15/2025 COMPARISON: US CLINICAL INDICATION: Female, 54 years old with history of E04.0 NONTOXIC GOITER; F/U Goiter TECHNIQUE: Grayscale and color Doppler imaging of the thyroid gland. FINDINGS: GLAND SIZE: Right Lobe: 3.9 x 1.2 x 1.2 cm Overall Parenchyma: heterogeneous Left Lobe: 3.7 x 1.1 x 1.1 cm Overall Parenchyma: heterogeneous Isthmus Thickness: 0.2 cm NODULES RIGHT: # of nodules measured on right: 1 1. 0.9 X 0.6 x 0.6 cm, mid lateral, Prior size: 0.8 x 0.6 x 0.7 cm TIRADS Score: 4 TIRADS Category 4: Composition: Solid or almost completely solid (2 points). Echogenicity: Hypoechoic (2 points). Shape: Wider than tall (0 points). Margin: Smooth (0 points). Echogenic foci: None or large comet-tail artifacts (0 points) Recommendation: If >1.5cm: FNA; If >1cm: Follow up at 1,2, 3,5 years LEFT: # of nodules measured on left: 0 ISTHMUS: # of nodules measured in the isthmus: 0 Bilateral neck scanned, no evidence of lymphadenopathy. Similar findings when compared to prior. IMPRESSION: Right thyroid nodule that meets criteria for follow-up. Highest TI-RADS level nodule reported: 2017 ACR TI-RADS LEVEL: TI-RADS 4 - Moderately Suspicious: Follow if > 1 cm, FNA if > 1.5 cm TI-RADS assessment score and recommendation for follow-up based on appropriate scoring and treatment protocols. TR1 Benign No FNA TR2 Not suspicious No FNA TR3: If nodule size is ? 2.5 cm, FNA is recommended. If nodule size is ? 1.5 cm, follow-up imaging at 1, 3, and 5 years is recommended. TR4: If nodule size is ? 1.5 cm, FNA is recommended. If nodule size is ? 1.0 cm, follow-up imaging at 1, 2, 3, and 5 years is recommended. TR5: If nodule size is ? 1.0 cm, FNA is recommended. If nodule size is ? 0.5 cm, annual follow-up for up to 5 years is recommended. TR 1 thyroid nodules have a 0.3 % risk of malignancy. TR 2 thyroid nodules have a 1.5 % risk of malignancy. TR 3 thyroid nodules have a 4.8 % risk of malignancy. TR 4 thyroid nodules have a 9.1 % risk of malignancy. TR 5 thyroid nodules have a 35 % risk of malignancy. [email or web address] [facility], , 01/15/2025 4:20 PM
== END | disposition home or self-care (01) ==
LOC: RADUSWWP 15:47
PROVIDERS: ATTEND Family Medicine
DX: E04.0 Nontoxic diffuse goiter (principal)
CPT/HCPCS: 76536